=== PATIENT | male | born 1960 | race Caucasian/White ===

== ENCOUNTER → 2016-05-22 | Outpatient (CLI) | payer OTHER ==
[~2016-05-22] MED LIST: CLC100 PO; GARL1TAB13 PO
[2016-05-22 17:40] LABS: ALT/SGPT 27 U/L (12-78); BLOOD UREA NITROGEN 18 mg/dl (7-18); BUN/CREATININE RATIO 15.2 (10-20); CARBON DIOXIDE 24 mmol/L (21-32); CHLORIDE 108 mmol/L (98-107); GLUCOSE 93 mg/dl (70-99); POTASSIUM 4.3 mmol/L (3.5-5.1); SODIUM 140 mmol/L (136-145)
[2016-05-22 17:43] LABS: ALB/GLOB RATIO 1.2 (0.9-2); ALKALINE PHOSPHATASE 90 U/L (45-117); AST/SGOT 19 U/L (15-37)
== END | disposition home or self-care (01) ==
LOC: C.LABPVFM 16:10
PROVIDERS: ATTEND Urology
DX: C64.9 Malignant neoplasm of unspecified kidney, except renal pelvis (principal)

== ENCOUNTER → 2016-05-27 | Outpatient (CLI) | payer OTHER ==
[~2016-05-27] MED LIST changes: +OPTIRAY 320 IV PRN
--- NOTE | 2016-05-27 17:06 | DIAGNOSTIC IMAGING REPORT ---
CT ABD/PELVIS COMBO CLINICAL HISTORY: Clear cell renal carcinoma COMPARISON STUDY: 06/12/2015 TECHNIQUE: Unenhanced images were obtained through the abdomen and pelvis. The patient was then scanned in a dynamic helical fashion during intravenous administration of 90 cc of Optiray 320. Portal phase and 5 minute imaging was performed. CT DOSE: 2709.95 mGycm FINDINGS: Lower chest: The heart is normal in size and configuration, without pericardial effusion. The lung bases and pleural spaces are clear. Liver: There is scattered hepatic hypodensities which approach water attenuation and likely represent cysts. Gallbladder: Unremarkable. Spleen: Normal in size and attenuation. Pancreas: Unremarkable. Adrenal glands: Unremarkable. Kidneys: The right kidney is surgically absent. There are tiny left renal calculi. There is mild fullness left renal collecting system. There is a 9 mm upper pole left renal cortical cyst. There are left renal parapelvic cysts. Bowel: There are no transition zones indicate bowel obstruction. The appendix appears normal. There is no evidence of acute diverticulitis. Peritoneum: There is no intraperitoneal free air or abdominal ascites. Vasculature: The abdominal aorta is normal in course and caliber. Adenopathy: None. Pelvic viscera: There is minor prostamegaly. Skeletal structures: No destructive osseous lesions are seen. IMPRESSION: 1. Interval right nephrectomy 2. No evidence of metastatic disease 3. Left-sided nephrolithiasis 4. 9 mm left renal cyst 5. Scattered hypodense hepatic lesions likely representing cysts 6. No evidence of pathologic adenopathy Electronically signed by: Dixon Aguilar M.D. 05/27/2016 5:05 PM Dictated Date/Time: 05/27/2016 4:55 PM
== END | disposition home or self-care (01) ==
LOC: C.CTS 16:28
PROVIDERS: ATTEND Urology
DX: C64.9 Malignant neoplasm of unspecified kidney, except renal pelvis (principal); Z90.5 Acquired absence of kidney; N20.0 Calculus of kidney; N28.1 Cyst of kidney, acquired; K76.9 Liver disease, unspecified

== ENCOUNTER → 2016-07-03 | Outpatient (CLI) | payer OTHER ==
[~2016-07-03] MED LIST changes: -OPTIRAY 320 IV PRN
[2016-07-03 11:51] LABS: BASO % 0.5 %; BASO ABS # 0.04 K/uL (0-0.2); COMPLETE YES; EOS % 2.1 %; HEMATOCRIT 45.2 % (42-52); IG% 0.4 %; LYMPH % 24.8 %; LYMPH ABS # 1.98 K/uL (1.2-3.4); MEAN CORPUSCULAR HEMOGLOBIN 30.1 pg (25-34); MEAN CORPUSCULAR HGB CONC 33.8 g/dl (32-36); NEUT % 66.2 %; PLATELET COUNT 309 K/uL (130-400); RED BLOOD COUNT 5.08 M/uL (4.7-6.1); WHITE BLOOD COUNT 7.99 K/uL (4.8-10.8)
== END | disposition home or self-care (01) ==
LOC: C.LAB1850 10:29
PROVIDERS: ATTEND Dermatology
DX: R21 Rash and other nonspecific skin eruption (principal); L29.9 Pruritus, unspecified

== ENCOUNTER → 2017-04-01 | Outpatient (CLI) | payer OTHER ==
[2017-04-01 17:32] LABS: ALBUMIN 4.2 gm/dl (3.4-5.0); ALT/SGPT 34 U/L (12-78); BLOOD UREA NITROGEN 19 mg/dl (7-18); CARBON DIOXIDE 24 mmol/L (21-32); CREATININE 1.18 mg/dl (0.60-1.40); GLUCOSE 90 mg/dl (70-99); SODIUM 135 mmol/L (136-145)
[2017-04-01 17:35] LABS: ALKALINE PHOSPHATASE 81 U/L (45-117); AST/SGOT 19 U/L (15-37); TOTAL PROTEIN 8.1 gm/dl (6.4-8.2)
== END | disposition home or self-care (01) ==
LOC: C.LABPVFM 16:13
PROVIDERS: ATTEND Urology
DX: C64.9 Malignant neoplasm of unspecified kidney, except renal pelvis (principal)

== ENCOUNTER → 2017-04-08 | Outpatient (CLI) | payer OTHER ==
[~2017-04-08] MED LIST changes: +OPTIRAY 320 IV PRN
--- NOTE | 2017-04-08 17:02 | DIAGNOSTIC IMAGING REPORT ---
ABD/PELVIS COMBO HISTORY: 56 years-old Male RENAL CELL CA prior right-sided nephrectomy in a patient with history of remote renal cell carcinoma. Follow-up study. COMPARISON: CT abdomen and pelvis 05/27/2016 TECHNIQUE: Multiple axial CT images of the abdomen and pelvis were obtained both with and without the use of 75 mL Optiray 320 IV contrast utilizing renal mass protocol. A dose lowering technique was used consistent with the principals of CARLYLE. FINDINGS: Mild dependent subsegmental bibasilar atelectasis. No suspicious pulmonary nodules or masses identified in the imaged lung bases. There is no pneumatosis or pneumoperitoneum identified. The imaged inferior cardiac chambers demonstrate coronary arterial disease and are otherwise unremarkable. There are several unchanged circumscribed low attenuating lesions again noted throughout the liver, probably within the left hepatic lobe, largest of which measures up to 1.4 cm suggesting hepatic cysts. The largest lesion within the right hepatic lobe measures 8 mm. There is no intrahepatic biliary ductal dilation. The gallbladder, spleen, pancreas and adrenal glands are unremarkable. Punctate nonobstructing renal calculi noted throughout the left kidney with largest calculi measuring up to 3 mm within the inferior pole. Mild nonspecific left perinephric stranding. No left-sided ureteral calculi or obstructive uropathy. Unchanged 9 mm cyst of the superior pole left kidney. Renal sinus cysts are seen on the left, largest of which measures 2.3 x 1.7 cm within the interpolar region. No suspicious left renal mass lesions identified. No focal filling defects identified within the left renal collecting system or left ureter. Only the proximal ureter as well opacified. Prior right-sided fracture may. No suspicious mass lesions identified within the expected region of the right kidney or retroperitoneum. Urinary bladder is unremarkable. Prostate is mildly enlarged with central coarse calcifications. Aorta is normal in course and caliber with mild atherosclerosis. No pathologic adenopathy identified. No bowel structure or focal bowel wall thickening identified. The appendix appears normal. Mild nonspecific subcutaneous stranding of the right anterior abdominal wall image 300 of series 5 is unchanged suggesting area of scarring. Soft tissues are otherwise unremarkable. The bones appear intact without suspicious lytic or blastic lesions identified. IMPRESSION: 1. No acute intra-abdominal or intrapelvic abnormality identified. No evidence of metastatic disease or pathologic adenopathy. 2. Prior right-sided nephrectomy. 3. Multiple nonobstructing left-sided renal calculi with subcentimeter cyst of the superior pole and multiple renal sinus cysts. 4. Unchanged appearance of scattered low attenuating lesions throughout the liver, likely reflecting hepatic cysts. The above report was generated using voice recognition software. It may contain grammatical, syntax or spelling errors. Electronically signed by: Ruddy Vu M.D. 04/08/2017 5:00 PM Dictated Date/Time: 04/08/2017 4:51 PM
== END | disposition home or self-care (01) ==
LOC: C.CTS 16:03
PROVIDERS: ATTEND Urology
DX: C64.9 Malignant neoplasm of unspecified kidney, except renal pelvis (principal); Z90.5 Acquired absence of kidney; N20.0 Calculus of kidney

== ENCOUNTER 2022-05-31 05:42 | Inpatient (IN) ==
[2022-05-31] MEDS ORDERED: SODIUM CHLORIDE 0.9% 1000ML 500 ML IV ONE (06:45)
[2022-05-31] MEDS ORDERED: ONDANSETRON INJ 2 MG/ML 2 ML VIAL IV STA (06:45)
[2022-05-31] MEDS ORDERED: fentaNYL citrate PF 100 MCG/2 ML VIAL IV STA ×3 (06:45→08:17)
[2022-05-31 06:46] LABS: Hematocrit (blood only) 45.6 % (42.0-52.0); Hemoglobin 15.6 g/dl (14.0-18.0); Mean Corpuscular Hemoglobin 30.8 pg (25.0-34.0); Mean Corpuscular Hgb Conc 34.2 g/dL (32.0-36.0); Mean Corpuscular Volume 89.9 fL (80.0-100.0); Mean Platelet Volume 9.1 fL (9.4-12.4); Platelet Count 338 K/uL (130-400); RDW Standard Deviation 42.6 fL (36.4-46.3); Red Blood Count 5.07 M/uL (4.70-6.10); White Blood Count 17.03 K/ul (4.8-10.8)
--- NOTE | 2022-05-31 06:56 | Emergency Department Note ---
Impression & Plan Kidney stone on left side, Acute UTI, CHAD (acute kidney injury) ED Provider Note Provider: Mark Mckinney MD DATE OF SERVICE: 05/31/2022 CHIEF COMPLAINT: Abdominal pain, nausea and vomiting HISTORY OF PRESENT ILLNESS: Patient is a 61-year-old gentleman history of clear- cell renal carcinoma status post right nephrectomy following recently with a right hydrocele by urology presenting here today developing some left sided abdominal pain yesterday with abdominal distention and nausea and vomiting worsening yesterday through the night. 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 Did try some Dulcolax by mouth last night with little effect and only a very small bowel movement trace last night. Nonbloody. Denies trauma. Reports he has been feeling a bit warm but denies true fever. Pain is moved to the left abdomen towards the center of the abdomen. Still having some swelling and tenderness of the right testicle but again following closely with urology for this and states he has follow-up this coming week with them. Denies a history of bowel obstruction. Did have a history of a right nephrectomy some years ago. PAST MEDICAL HISTORY: As noted above MEDICATIONS: Reviewed home medication list SOCIAL HISTORY: Non-smoker PHYSICAL EXAM: GENERAL: alert and oriented laying on stretcher appears mildly uncomfortable Head: normocephalic and atraumatic EYES: No injection, discharge or icterus. NECK: Trachea midline. ENT: Mucous membranes pink and moist. LUNGS: Airway patent. No retractions. Breath sounds clear with good air entry bilaterally. HEART: Regular rate and rhythm. No chest wall tenderness ABDOMEN: Abdomen is distended and firm diffusely tender throughout particular in the mid to left abdomen without appreciable mass. : Right testicle is swollen in comparison to the left without discharge noted with a healing central scrotal wound with still a trace area of granulation about 3 cm x 2 cm in the middle of this without surrounding erythema. Mild tenderness. SKIN: Acyanotic, warm, dry EXTREMITIES: Without swelling, tenderness or deformity NEUROLOGICAL: No focal deficits. No aphasia. No facial droop or slurred speech. Ambulatory. EK bpm normal sinus rhythm. No PVC or PAC. No acute ST segment elevation or depression with QTc 443. CONTINUOUS CARDIAC MONITORING: was ordered and showed a heart rate of 70s-80s bpm in normal sinus rhythm Patient's laboratory studies and imaging reviewed. Differential includes Appendicitis, testicular torsion, infections, diverticulitis, UTI, obstruction, mesenteric ischemia, aortic pathology, inflammatory bowel disease, renal colic, PUD, pancreatitis, biliary pathology, hernia, volvulus, constipation, as well as other pathologies. IMPRESSION/MEDICAL DECISION MAKING: Patient following with urology for hydrocele but symptoms today seem to be more abdominal in nature. Has a history of kidney stones but states this feels different. Denies trauma. Significant left abdominal tenderness to the midline with distention and again has had nausea and vomiting with limited bowel movement last night no gas. Concern for obstruction is high. Patient diffusely tender and given some fentanyl as well as Zofran for nausea control. Given his reported decreased intake yesterday and given some IV fluids. Patient afebrile here and not tachycardic. Patient with history of hydrocele but denies significant change in this ongoing chronic issue and lower suspicion for acute testicular pathology. On blood work, White blood cell count is elevated 17,000. No anemia. Lactate within normal limits. Procalcitonin 0.17 not severely elevated. Sent for CT scan to evaluate for intra-abdominal pathology. EKG and troponin completed abundance of caution without significant acute ischemic changes noted and within normal troponin lower suspicion for ACS given his ongoing symptoms. Chemistries returned without lipase elevation with slight ALT elevation as well as bilirubin total elevation. Creatinine off of baseline at almost 1.6 today from baseline around 1.1. No significant potassium or sodium abnormality. Sent for Noncon scan of the abdomen pelvis given the acute renal dysfunction with a history of a right-sided nephrectomy. Urinalysis returns with blood as well as concerning findings for possible infection although epithelial cells are present. CT scan of the abdomen pelvis per radiology shows evidence of a 6 x 4 mm left-sided kidney stone with hydronephrosis. Hydrocele is noted there as well but I do not believe this is the acute issue with his complaint today. Given leukocytosis, dirty urine, and findings of a kidney stone covered with a dose of IV cefepime for bacterial coverage. Given the findings of a kidney stone possibly infected although not septic at this point with the change in renal function and solitary kidney, discussed with urology. Kept n.p.o. with the plan for likely stenting. They recommended medical admission given his CHAD and possible infection. Discussed with the hospitalist team. Patient still having a fair amount of pain although nausea is improved. States the pain medicines make him drowsy but not relieving his pain. DIAGNOSIS: left kidney stone, CHAD, acute UTI DISPOSITION: Hospitalist will evaluate as well as the urology team. Patient was agreeable with this plan. 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 Beliefs That Will Affect Care: None Current Living Situation: Alone Feels Safe at Home: Yes Assistive Devices: None Allergies Allergies Allergy/AdvReac Type Severity Reaction Status Date / Time Penicillins Allergy Mild CHILD Verified 05/22/22 16:02 HAD A RASH morphine AdvReac Mild N/V Verified 05/22/22 16:02 Home Meds Home Medications Medication Instructions Recorded Confirmed garlic 1,000 mg capsule 1,000 mg PO QAM 03/21/22 05/22/22 Results & Data (ED) Vital Signs Vital Signs - 24 hr 05/31/22 05:44 05/31/22 06:20 05/31/22 07:00 Temperature 36.3 C L Temperature Source Temporal Artery Scan Pulse Rate 82 88 Pulse Rate [Apical] Pulse Rate from SpO2 Sensor 86 Pulse Rhythm [Apical] Pulse Strength [Apical] Respiratory Rate 18 24 Respiratory Effort / Characteristics Non-Labored Spontaneous Respiratory Depth Normal Respiratory Pattern Blood Pressure 168/96 H Blood Pressure [Left Arm] Blood Pressure [Right Arm] Blood Pressure Mean 120 Blood Pressure Mean [Left Arm] Blood Pressure Mean [Right Arm] Blood Pressure Position Sitting Blood Pressure Position [Left Arm] Blood Pressure Position [Right Arm] Pulse Oximetry 95 97 94 Oxygen Delivery Method Room Air Room Air Oxygen Flow Rate Sepsis Recent Fever Within 48 Hours No Sepsis New/Unexplained Change in Mental Status No Sepsis Action Taken by Nursing No Action Required 05/31/22 07:17 05/31/22 07:13 05/31/22 07:40 Temperature Temperature Source Pulse Rate 88 77 Pulse Rate [Apical] 88 Pulse Rate from SpO2 Sensor 89 78 Pulse Rhythm [Apical] Regular Pulse Strength [Apical] Respiratory Rate 18 35 H 25 H Respiratory Effort / Characteristics Non-Labored Respiratory Depth Normal Respiratory Pattern Blood Pressure 161/93 H Blood Pressure [Left Arm] Blood Pressure [Right Arm] 161/93 H Blood Pressure Mean 115 Blood Pressure Mean [Left Arm] Blood Pressure Mean [Right Arm] 115 Blood Pressure Position Blood Pressure Position [Left Arm] Blood Pressure Position [Right Arm] Pulse Oximetry 95 95 96 Oxygen Delivery Method Room Air Oxygen Flow Rate Sepsis Recent Fever Within 48 Hours Sepsis New/Unexplained Change in Mental Status Sepsis Action Taken by Nursing 05/31/22 08:00 05/31/22 08:30 05/31/22 08:38 Temperature Temperature Source Pulse Rate 82 78 85 Pulse Rate [Apical] Pulse Rate from SpO2 Sensor 83 79 Pulse Rhythm [Apical] Pulse Strength [Apical] Respiratory Rate 33 H 37 H Respiratory Effort / Characteristics Respiratory Depth Respiratory Pattern Blood Pressure 152/83 H 150/81 H Blood Pressure [Left Arm] Blood Pressure [Right Arm] Blood Pressure Mean 106 104 Blood Pressure Mean [Left Arm] Blood Pressure Mean [Right Arm] Blood Pressure Position Blood Pressure Position [Left Arm] Blood Pressure Position [Right Arm] Pulse Oximetry 90 92 Oxygen Delivery Method Oxygen Flow Rate Sepsis Recent Fever Within 48 Hours Sepsis New/Unexplained Change in Mental Status Sepsis Action Taken by Nursing 05/31/22 09:01 05/31/22 09:01 05/31/22 09:11 Temperature Temperature Source Pulse Rate 94 H 94 H Pulse Rate [Apical] Pulse Rate from SpO2 Sensor 93 H Pulse Rhythm [Apical] Pulse Strength [Apical] Respiratory Rate 15 15 Respiratory Effort / Characteristics Respiratory Depth Respiratory Pattern Blood Pressure 169/100 H 169/100 H Blood Pressure [Left Arm] Blood Pressure [Right Arm] Blood Pressure Mean 123 Blood Pressure Mean [Left Arm] Blood Pressure Mean [Right Arm] Blood Pressure Position Blood Pressure Position [Left Arm] Blood Pressure Position [Right Arm] Pulse Oximetry 99 99 Oxygen Delivery Method Room Air Oxygen Flow Rate Sepsis Recent Fever Within 48 Hours Sepsis New/Unexplained Change in Mental Status Sepsis Action Taken by Nursing 05/31/22 09:22 05/31/22 10:26 05/31/22 10:35 Temperature 37 C 38.0 C H Temperature Source Oral Temporal Artery Scan Pulse Rate Pulse Rate [Apical] 83 89 90 Pulse Rate from SpO2 Sensor Pulse Rhythm [Apical] Regular Regular Regular Pulse Strength [Apical] Normal Normal Normal Respiratory Rate 22 18 32 H Respiratory Effort / Characteristics Non-Labored Spontaneous Non-Labored Spontaneous Non-Labored Spontaneous Respiratory Depth Normal Normal Normal Respiratory Pattern Regular Regular Regular Blood Pressure Blood Pressure [Left Arm] 94/58 L 109/65 Blood Pressure [Right Arm] 150/79 H Blood Pressure Mean Blood Pressure Mean [Left Arm] 70 79 Blood Pressure Mean [Right Arm] 102 Blood Pressure Position Blood Pressure Position [Left Arm] Lying Lying Blood Pressure Position [Right Arm] Lying Pulse Oximetry 93 96 99 Oxygen Delivery Method Room Air Oxymask Oxymask Oxygen Flow Rate 6 6 Sepsis Recent Fever Within 48 Hours Sepsis New/Unexplained Change in Mental Status Sepsis Action Taken by Nursing Laboratory Data 05/31/22 06:22 05/31/22 06:22 Lab Results 05/31/22 05/31/22 05/31/22 Range/Units 06:22 06:22 06:22 WBC 17.03 H (4.8-10.8) K/ul RBC 5.07 (4.70-6.10) M/uL Hgb 15.6 (14.0-18.0) g/dl Hct 45.6 (42.0-52.0) % MCV 89.9 (80.0-100.0) fL MCH 30.8 (25.0-34.0) pg MCHC 34.2 (32.0-36.0) g/dL RDW Std Deviation 42.6 (36.4-46.3) fL RDW Coeff of Milagros 13.0 (11.5-14.5) % Plt Count 338 (130-400) K/uL MPV 9.1 L (9.4-12.4) fL Immature Gran % (Auto) 0.5 % Neut % (Auto) 90.2 % Lymph % (Auto) 5.2 % Pennington % (Auto) 3.6 % Eos % (Auto) 0.1 % Baso % (Auto) 0.4 % Neut # (Auto) 15.39 H (1.40-6.50) K/uL Lymph # (Auto) 0.88 L (1.2-3.4) K/uL Pennington # (Auto) 0.61 H (0.11-0.59) K/uL Eos # (Auto) 0.01 (0-0.50) K/uL Baso # (Auto) 0.06 (0-0.2) K/uL Immature Gran # (Auto) 0.08 (0.01-0.20) K/uL Toxic Vacuolation 1+ Sodium 138 (136-145) mmol/L Potassium 4.0 (3.5-5.1) mmol/L Chloride 103 (98-107) mmol/L Carbon Dioxide 23 (21-32) mmol/L Anion Gap 12 H (3-11) BUN 23 (6-23) mg/dl Creatinine 1.59 H (0.6-1.4) mg/dl Est Cr Clr Drug Dosing 58.0 ml/min Est GFR ( Amer) 52.8 ml/min Est GFR (Non-Af Amer) 45.5 ml/min BUN/Creatinine Ratio 14.5 (10-20) Glucose 167 H (70-99(Fasting)) mg/dl Lactate 1.4 (0.4-2.0) mmol/L Calcium 9.5 (8.6-10.3) mg/dl Magnesium 2.2 (1.7-2.4) mg/dl Total Bilirubin 1.7 H (0.2-1.0) mg/dl Direct Bilirubin 0.3 H (0-0.2) mg/dl AST 29 (13-39) U/L ALT 60 H (7-52) U/L Alkaline Phosphatase 63 (34-104) U/L Troponin I High Sens 9.1 (0-20) pg/ml Total Protein 8.1 (6.0-8.3) gm/dl Albumin 4.6 (3.4-5.0) gm/dl Lipase 9 L (11-82) U/L Procalcitonin (0-0.5) ng/ml Urine Color Urine Appearance (Clear) Urine pH (4.5-7.5) Ur Specific Dickens (1.000-1.030) Urine Protein (Negative) Urine Glucose (UA) (Negative) Urine Ketones (Negative) Urine Blood (Negative) Urine Nitrite (Negative) Urine Bilirubin (Negative) Urine Urobilinogen (Negative) Ur Leukocyte Esterase (Negative) Urine WBC (Auto) (0-5) /hpf Urine RBC (Auto) (0-4) /hpf U Hyaline Cast (Auto) (0-5) /lpf U Epithel Cells (Auto) (0-5) /lpf Urine Bacteria (Auto) (Negative) SARS-CoV-2, RNA, NAAT (NEGATIVE) 05/31/22 05/31/22 05/31/22 Range/Units 06:22 06:23 Unknown WBC (4.8-10.8) K/ul RBC (4.70-6.10) M/uL Hgb (14.0-18.0) g/dl Hct (42.0-52.0) % MCV (80.0-100.0) fL MCH (25.0-34.0) pg MCHC (32.0-36.0) g/dL RDW Std Deviation (36.4-46.3) fL RDW Coeff of Milagros (11.5-14.5) % Plt Count (130-400) K/uL MPV (9.4-12.4) fL Immature Gran % (Auto) % Neut % (Auto) % Lymph % (Auto) % Pennington % (Auto) % Eos % (Auto) % Baso % (Auto) % Neut # (Auto) (1.40-6.50) K/uL Lymph # (Auto) (1.2-3.4) K/uL Pennington # (Auto) (0.11-0.59) K/uL Eos # (Auto) (0-0.50) K/uL Baso # (Auto) (0-0.2) K/uL Immature Gran # (Auto) (0.01-0.20) K/uL Toxic Vacuolation Sodium (136-145) mmol/L Potassium (3.5-5.1) mmol/L Chloride (98-107) mmol/L Carbon Dioxide (21-32) mmol/L Anion Gap (3-11) BUN (6-23) mg/dl Creatinine (0.6-1.4) mg/dl Est Cr Clr Drug Dosing ml/min Est GFR ( Amer) ml/min Est GFR (Non-Af Amer) ml/min BUN/Creatinine Ratio (10-20) Glucose (70-99(Fasting)) mg/dl Lactate (0.4-2.0) mmol/L Calcium (8.6-10.3) mg/dl Magnesium (1.7-2.4) mg/dl Total Bilirubin (0.2-1.0) mg/dl Direct Bilirubin (0-0.2) mg/dl AST (13-39) U/L ALT (7-52) U/L Alkaline Phosphatase (34-104) U/L Troponin I High Sens (0-20) pg/ml Total Protein (6.0-8.3) gm/dl Albumin (3.4-5.0) gm/dl Lipase (11-82) U/L Procalcitonin 0.17 (0-0.5) ng/ml Urine Color Yellow Urine Appearance Turbid A (Clear) Urine pH 5.5 (4.5-7.5) Ur Specific Dickens 1.012 (1.000-1.030) Urine Protein 1+ H (Negative) Urine Glucose (UA) Negative (Negative) Urine Ketones Negative (Negative) Urine Blood 3+ H (Negative) Urine Nitrite Negative (Negative) Urine Bilirubin Negative (Negative) Urine Urobilinogen Negative (Negative) Ur Leukocyte Esterase 3+ H (Negative) Urine WBC (Auto) >30 H (0-5) /hpf Urine RBC (Auto) 10-30 H (0-4) /hpf U Hyaline Cast (Auto) 1-5 (0-5) /lpf U Epithel Cells (Auto) >30 H (0-5) /lpf Urine Bacteria (Auto) 4+ H (Negative) SARS-CoV-2, RNA, NAAT NEGATIVE (NEGATIVE) Administered Medications Diatrizoate Meglumine (Diatrizoate Meglumine 30% 100ml Vial) 24 ml INSTIL ONCE ONE Stop: 05/31/22 10:39 Last Admin: 05/31/22 10:00 Dose: 24 ml Documented By: [id number] Discontinued Medications Fentanyl Citrate (Fentanyl Citrate Pf 100 Mcg/2 Ml Vial) 50 mcg IV NOW STA Stop: 05/31/22 06:46 Last Admin: 05/31/22 06:53 Dose: 50 mcg Documented By: MJK Fentanyl Citrate (Fentanyl Citrate Pf 100 Mcg/2 Ml Vial) 100 mcg IV NOW STA Stop: 05/31/22 07:41 Last Admin: 05/31/22 07:46 Dose: 100 mcg Documented By: JACKSON Fentanyl Citrate (Fentanyl Citrate Pf 100 Mcg/2 Ml Vial) 50 mcg IV NOW STA Stop: 05/31/22 08:18 Last Admin: 05/31/22 08:26 Dose: 50 mcg Documented By: JACKSON Sodium Chloride (Nss 1000ml) 500 mls @ 999 mls/hr IV .Q31M ONE Stop: 05/31/22 07:15 Last Infusion: 05/31/22 07:26 Dose: 0 mls/hr Documented By: Admin: 05/31/22 06:53 Dose: 999 mls/hr Documented By: ALEX Cefepime HCl (Maxipime) 2,000 mg in 20 mls @ 5 mls/min IV NOW STA; Protocol Stop: 05/31/22 08:13 Last Admin: 05/31/22 08:27 Dose: 5 mls/min Documented By: JACKSON Acetaminophen (Ofirmev) 1,000 mg in 100 mls @ 400 mls/hr IV ONE ONE Stop: 05/31/22 09:09 Last Admin: 05/31/22 09:05 Dose: 400 mls/hr Documented By: JACKSON Ondansetron HCl (Ondansetron Inj 2 Mg/Ml 2 Ml Vial) 4 mg IV NOW STA Stop: 05/31/22 06:46 Last Admin: 05/31/22 06:54 Dose: 4 mg Documented By: ALEX Imaging Data Radiologist's Impression: Chest X-Ray 05/31/22 05:49 XR chest 1V portable HISTORY: Sepsis COMPARISON: Chest 03/20/2022. FINDINGS: There are low lung volumes with mild elevation the right hemidiaphragm. This remains unchanged. The cardiac silhouette is borderline enlarged. No new focal lung consolidations to suggest a pneumonia. No evidence for pulmonary edema. IMPRESSION: No significant change compared to the prior study. No acute process. ACT 112: Negative or not required by law. Electronically signed by: Leonardo Vivas M.D. 05/31/2022 7:29 AM Abdomen/Pelvis CT 05/31/22 07:24 CT OF THE ABDOMEN AND PELVIS WITHOUT CONTRAST CLINICAL HISTORY: Abdominal pain, nausea and vomiting, ?obstruction COMPARISON STUDY: CT of the abdomen and pelvis March 20, 2022. TECHNIQUE: Axial images of the abdomen and pelvis were obtained without IV contrast. Images were reviewed in the axial, sagittal, and coronal planes. Automated exposure control was utilized for the study. A dose lowering technique was utilized adhering to the principles of ALARA. FINDINGS: Lung bases are unremarkable. No pneumatosis, free air or portal venous gas is present. A 6 mm x 4 mm distal left ureteral calculus results in mild to moderate left hydronephrosis with perinephric and periureteral stranding. There is a punctate left renal calculus. The right kidney is surgically absent. There is no abnormality within the right nephrectomy bed. There is hepatic steatosis. Hypodense hepatic lesions are unchanged and favor cysts. Spleen, adrenal glands and pancreas are unremarkable. There is no evidence for a bowel obstruction. The re is no lymphadenopathy. No suspicious lesions are identified within visualized skeletal structures. Note is made of a large complex suspected right hydrocele that measures approximately 11 x 8.9 x 8.2 cm. This contains internal septations. The right testis is suboptimally assessed by CT. Right scrotal skin thickening is noted. IMPRESSION: 1. 6 mm x 4 mm distal left ureteral calculus which results in mild to moderate left hydronephrosis. 2. Punctate left renal calculus. 3. No abnormality within the right nephrectomy bed. 4. Large complex right hydrocele which measures approximately 11 x 8.9 x 8.2 cm. This contains internal septations. Associated right scrotal skin thickening. ACT 112: Negative or not required by law. Electronically signed by: Ghassan Multani M.D. 05/31/2022 8:07 AM Discharge Plan Visit Data Chief Complaint: Constipation Stated Complaint: CONSTIPATION ED Provider: Mark Mckinney Discharge Problem: Kidney stone on left side, Acute UTI, CHAD (acute kidney injury) Patient Disposition: Being Evaluated by Hospitalist Discharge Instructions Interventions: ED Discharge Assessment Last Done: 05/31/22 09:11
[2022-05-31 07:09] LABS: Troponin I High Sensitivity 9.1 pg/ml (0-20)
[2022-05-31 07:12] LABS: Basophils # (auto) 0.06 K/uL (0-0.2); Basophils % (auto) 0.4 %; Eosinophils # (auto) 0.01 K/uL (0-0.50); Eosinophils % (auto) 0.1 %; Immature Granulocytes # (auto) 0.08 K/uL (0.01-0.20); Immature Granulocytes % (auto) 0.5 %; Lymphocytes # (auto) 0.88 K/uL (1.2-3.4); Lymphocytes % (auto) 5.2 %; Monocytes # (auto) 0.61 K/uL (0.11-0.59); Monocytes % (auto) 3.6 %; Neutrophils # (auto) 15.39 K/uL (1.40-6.50); Neutrophils % (auto) 90.2 %; Toxic Vacuolation 1+
[2022-05-31 07:23] LABS: Albumin Level 4.6 gm/dl (3.4-5.0); BUN Creatinine Ratio 14.5 (10-20); Bilirubin Direct 0.3 mg/dl (0-0.2); Bilirubin,Total 1.7 mg/dl (0.2-1.0); Calcium 9.5 mg/dl (8.6-10.3); Est GFR (African American) 52.8 ml/min; Est GFR (Non-African American) 45.5 ml/min; Magnesium 2.2 mg/dl (1.7-2.4); Total Protein 8.1 gm/dl (6.0-8.3)
[2022-05-31 07:28] LABS: Appearance Urine Turbid (Clear); Bacteria Urine Automated 4+ (Negative); Bilirubin Urine Negative (Negative); Blood Urine 3+ (Negative); Color Urine Yellow; Epithelial Cell Urine Auto >30 /lpf (0-5); Glucose Urine UA Negative (Negative); Ketones Urine Negative (Negative); Leukocyte Esterase Urine 3+ (Negative); Nitrite Urine Negative (Negative); Protein Urine 1+ (Negative); Specific Gravity Urine 1.012 (1.000-1.030); Urobilinogen Urine Negative (Negative); WBC Urine Automated >30 /hpf (0-5); pH Urine 5.5 (4.5-7.5)
--- NOTE | 2022-05-31 07:30 | XRay Report ---
XR chest 1V portable HISTORY: Sepsis COMPARISON: Chest 03/20/2022. FINDINGS: There are low lung volumes with mild elevation the right hemidiaphragm. This remains unchan ged. The cardiac silhouette is borderline enlarged. No new focal lung consolidations to suggest a pne umonia. No evidence for pulmonary edema. IMPRESSION: No significant change compared to the prior study. No acute process. ACT 112: Negative or not required by law. Electronically signed by: Leonardo Vivas M.D. 05/31/2022 7:29 AM
--- NOTE | 2022-05-31 08:09 | CT Scan Report ---
CT OF THE ABDOMEN AND PELVIS WITHOUT CONTRAST CLINICAL HISTORY: Abdominal pain, nausea and vomiting, ?obstruction COMPARISON STUDY: CT of the abdomen and pelvis March 20, 2022. TECHNIQUE: Axial images of the abdomen and pelvis were obtained without IV contrast. Images were revi ewed in the axial, sagittal, and coronal planes. Automated exposure control was utilized for the juan pablo dy. A dose lowering technique was utilized adhering to the principles of ALARA. FINDINGS: Lung bases are unremarkable. No pneumatosis, free air or portal venous gas is present. A 6 mm x 4 mm distal left ureteral calculus results in mild to moderate left hydronephrosis with perineph hannah and periureteral stranding. There is a punctate left renal calculus. The right kidney is surgical ly absent. There is no abnormality within the right nephrectomy bed. There is hepatic steatosis. Hypo dense hepatic lesions are unchanged and favor cysts. Spleen, adrenal glands and pancreas are unremark able. There is no evidence for a bowel obstruction. There is no lymphadenopathy. No suspicious lesion s are identified within visualized skeletal structures. Note is made of a large complex suspected rig ht hydrocele that measures approximately 11 x 8.9 x 8.2 cm. This contains internal septations. The ri ght testis is suboptimally assessed by CT. Right scrotal skin thickening is noted. IMPRESSION: 1. 6 mm x 4 mm distal left ureteral calculus which results in mild to moderate left hydronephrosis. 2. Punctate left renal calculus. 3. No abnormality within the right nephrectomy bed. 4. Large complex right hydrocele which measures approximately 11 x 8.9 x 8.2 cm. This contains human resource intern al septations. Associated right scrotal skin thickening. ACT 112: Negative or not required by law. Electronically signed by: Ghassan Multani M.D. 05/31/2022 8:07 AM
[2022-05-31] MEDS ORDERED: CEFEPIME 2,000 MG/20 ML VIAL IV STA (08:10)
--- NOTE | 2022-05-31 08:34 | Electrocardiogram Report ---
Test Reason : Blood Pressure : / mmHG Vent. Rate : 077 BPM Atrial Rate : 077 BPM P-R Int : 156 ms QRS Dur : 094 ms QT Int : 392 ms P-R-T Axes : 051 -21 007 degrees QTc Int : 443 ms Normal sinus rhythm Normal ECG When compared with ECG of 20-MAR-2022 15:41, No significant change was found Confirmed by Kieran Joseph ([id number]) on 05/31/2022 8:34:19 AM Referred By: Confirmed By:Kieran Joseph
--- NOTE | 2022-05-31 08:44 | Anesthesiology Consultation ---
Date of Service May 31, 2022 Assessment & Plan (1) Encounter for pre-operative examination: Chart Review Chart Review: Acceptable Risk for Surgery and Patient NOT seen in Pre Admission Testing Consults Requested none History Surgery Operation Date: 05/31/22 10:05 Proposed Procedures p Cystoscopy, Left Retrograde, Left Stent Placement - Andrew Pompa DO Height/Weight Height: 5 ft 9 in Weight: 109.6 kg Allergies Allergy/AdvReac Type Severity Reaction Status Date / Time Penicillins Allergy Mild CHILD Verified 05/22/22 16:02 HAD A RASH morphine AdvReac Mild N/V Verified 05/22/22 16:02 Medications Home Medications Medication Instructions Recorded Confirmed Last Taken garlic 1,000 mg capsule 1,000 mg PO QAM 03/21/22 05/22/22 03/21/22 Past Medical History Medical History Arthritis History of kidney stones Hx of renal cell cancer Obesity Right hydrocele Past Family History Family History Other No family history of adverse response to anesthesia Past Surgical History Surgical History H/O metal removed from eye History of back surgery "LASER">LOWER DISC History of colonoscopy History of lithotripsy History of nephrectomy, right Social History Smoking Status: Never smoker tobacco type: smokeless tobacco Hx Alcohol Use: Yes alcohol intake frequency: holidays/special occasions only substance use type: does not use Physical Exam Vital Signs Last Vital Signs Temp 97.3 F L 05/31/22 05:44 Pulse 85 05/31/22 08:38 Resp 37 H 05/31/22 08:30 BP 150/81 H 05/31/22 08:30 Pulse Ox 92 05/31/22 08:30 O2 Del Method Room Air 05/31/22 07:17 Testing Laboratory Results 05/31/22 06:22 05/31/22 06:22 Urine Color Yellow 05/31/22 06:23 Urine Appearance Turbid (Clear) A 05/31/22 06:23 Urine pH 5.5 (4.5-7.5) 05/31/22 06:23 Ur Specific [place] 1.012 (1.000-1.030) 05/31/22 06:23 Urine Protein 1+ (Negative) H 05/31/22 06:23 Urine Glucose (UA) Negative (Negative) 05/31/22 06:23 Urine Ketones Negative (Negative) 05/31/22 06:23 Urine Nitrite Negative (Negative) 05/31/22 06:23 Ur Leukocyte Esterase 3+ (Negative) H 05/31/22 06:23 Urine WBC (Auto) >30 /hpf (0-5) H 05/31/22 06:23 Urine RBC (Auto) 10-30 /hpf (0-4) H 05/31/22 06:23 U Hyaline Cast (Auto) 1-5 /lpf (0-5) 05/31/22 06:23 U Epithel Cells (Auto) >30 /lpf (0-5) H 05/31/22 06:23 Urine Bacteria (Auto) 4+ (Negative) H 05/31/22 06:23 Electrocardiogram Date: 05/31/22 Findings: + NSR @
[2022-05-31] MEDS ORDERED: ACETAMINOPHEN 1,000 MG/100 ML VIAL IV ONE (08:55)
--- NOTE | 2022-05-31 08:56 | Urology Consultation ---
Date of Consultation May 31, 2022 Assessment & Plan (1) Ureteral calculus, left: (2) Solitary kidney: (3) Hydronephrosis: (4) Acute UTI: (5) CHAD (acute kidney injury): (6) Flank pain: Plan 61-year-old male with a solitary kidney admitted with suspected UTI, CHAD, severe left flank pain secondary to an obstructing left ureteral stone. CT abdomen pelvis independently reviewed and notable for an obstructing distal left ureteral stone causing mild to moderate hydronephrosis. He is afebrile, but hypertensive. Still with significant left sided pain despite IV pain medication. Labs show leukocytosis of 17, hemoglobin 15.6, creatinine up to 1.59 (baseline 1.1). UA suspicious for infection, urine and blood cultures pending. Received IV cefepime in the ED. Given his history of solitary kidney, suspected UTI, and CHAD in the setting of an obstructing left ureteral stone, will proceed to OR today for cystoscopy, left retrograde pyelogram, left ureteral stent placement. Patient agreeable to plan, all questions were answered. Risks and benefits to be reviewed with patient by Dr. Pompa. OR notified. COVID test negative. Keep NPO. Continue supportive care and antibiotics, can tailor as culture data becomes available. Urology will follow. Attending note: Independently assessed, examined, interviewed, and evaluated. Patient is actively developing sepsis with severe rigors and chills. Patient is mildly hypothermic. He has significant tachycardia as well as elevated blood pressure. Patient's white count is significantly elevated to 17.03. Creatinine has jumped up to 1.59. Patient had a COVID examination which was negative. Patient is acutely ill with obstructing stone on the left side. Patient has solitary kidney and due to this would be a major concern for possible development of significant obstructive issues from obstructing stone. Patient has previously had stones in the past. Is a longtime patient of Dr. Olson and has had multiple procedures for this for a scrotal hydrocele, and for his nephrectomy in 2016. Patient's complicated medical and surgical history is reviewed and summarized above. All labs and imagings were reviewed interpreted by myself Patient is going to be admitted for close and critical management. Patient is already receiving broad-spectrum antibiotics with cefepime given. Is undergoing volume resuscitation. Patient does not have any significant altered mental status overall has had increasing ill feelings and worsening pain going in waves. Pain has become extremely severe over the last couple hours. Risks and benefits discussed at length for procedure. These include bleeding, infection, injury to surrounding tissues or organs, and risks associated with anesthesia. Patient states understanding and agrees to proceed. Will sign consent and proceed with urgent intervention/emergent intervention for developing sepsis with solitary kidney and obstructing stone. Considerable concern about loss of life or limb due to the obstructive issues with considerable concern for development of sepsis and bacteremia. 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 He reported subjective fevers, chills, nausea and vomiting at home. On arrival he was afebrile and hemodynamically stable. Labs show a leukocytosis of 17.03, hemoglobin 15.6, and creatinine up to 1.59 (baseline 1.1). Urinalysis with 3+ blood, negative nitrite, 3+ LE,> 30 WBC, 1030 RBC,>30 epi, 4+ bacteria. CT abdomen pelvis obtained and notable for a 6 x 4 mm distal left ureteral stone resulting in mild to moderate left hydronephrosis. Punctate left renal stone also noted. No abnormality within the right nephrectomy bed. Also noted was a large complex right hydrocele containing internal septations with associated scrotal wall skin thickening. CT abdomen pelvis - 1. 6 mm x 4 mm distal left ureteral calculus which results in mild to moderate l eft hydronephrosis. 2. Punctate left renal calculus. 3. No abnormality within the right nephrectomy bed. 4. Large complex right hydrocele which measures approximately 11 x 8.9 x 8.2 cm. This contains internal septations. Associated right scrotal skin thickening Patient examined at bedside in the emergency room. Awake, resting in bed in on arrival. Appears uncomfortable. Still with significant left-sided pain. Has not had anything to eat since yesterday morning. He did have a few sips of water overnight. States he is voiding, but small amounts. States he had a right hydrocelectomy at the end of February. Developed a seroma which has been drained in the office. Has a follow-up with Dr. Whitney this coming Monday 06/05. Allergies Allergy/AdvReac Type Severity Reaction Status Date / Time Penicillins Allergy Mild CHILD Verified 05/22/22 16:02 HAD A RASH morphine AdvReac Mild N/V Verified 05/22/22 16:02 Home Medications Medication Instructions Recorded Confirmed Type garlic 1,000 mg capsule 1,000 mg PO QAM 03/21/22 05/22/22 History Patient History Medical History Arthritis History of kidney stones Hx of renal cell cancer Obesity Right hydrocele Surgical History H/O metal removed from eye History of back surgery "LASER">LOWER DISC History of colonoscopy History of lithotripsy History of nephrectomy, right Family History Other No family history of adverse response to anesthesia Social History Smoking Status: Never smoker Second Hand Exposure: No; Hx Alcohol Use: Yes Preferred Language: Nepali Aligning Inspector Required: No Beliefs That Will Affect Care: None Current Living Situation: Alone Feels Safe at Home: Yes Assistive Devices: None Review of Systems Review of Systems: All systems reviewed & are unremarkable except as noted in HPI & below Physical Exam Constitutional: + uncomfortable Eyes: PERRL, conjunctivae normal, anicteric sclerae ENMT: external ear and nose normal, oropharynx normal Neck: normal visual inspection Respiratory: no respiratory distress Gastrointestinal (Abdomen): Inspection/Auscultation: abdomen normal to inspection Musculoskeletal: Head/Neck/Chest: normocephalic Skin: no rashes, warm and dry Neurologic: moves all extremities and awake Psychiatric: Orientation: alert and oriented x 3 Genitourinary: Left flank tenderness with palpation Results & Data Vital Signs (Past 12 Hours) Vital Signs Temp Pulse Pulse Resp BP BP Pulse Ox 05/31/22 08:38 85 05/31/22 08:30 78 37 H 150/81 H 92 05/31/22 08:00 82 33 H 152/83 H 90 05/31/22 07:40 77 25 H 96 05/31/22 07:13 88 35 H 161/93 H 95 05/31/22 07:17 88 18 161/93 H 95 05/31/22 07:00 88 24 94 04/07/23 06:20 97 05/31/22 05:44 36.3 C L 82 18 168/96 H 95 O2 Del Method 05/31/22 08:38 05/31/22 08:30 05/31/22 08:00 05/31/22 07:40 05/31/22 07:13 05/31/22 07:17 Room Air 05/31/22 07:00 05/31/22 06:20 Room Air 05/31/22 05:44 Room Air PG Care Time/CCT Total # of Minutes Spent Total Time Spent with Patient: Total time spent is greater than 50% in coordination of care (as documented) at patient's floor/unit and/or counseling patient: Coding Level of Care Code 90740 IN/OBS CONSULT LVL 5,80M Diagnoses Ureteral calculus, left N20.1 Solitary kidney Hydronephrosis N13.30 Acute UTI N39.0 CHAD (acute kidney injury) N17.9 Flank pain R10.9
--- NOTE | 2022-05-31 09:20 | History & Physical Report ---
Date of Service May 31, 2022 Assessment & Plan (1) Acute UTI: Plan: Patient is a 61 yo male with left hydronephrosis and a left kidney stone Concern over a UTI. Patient on antibiotics, patient will be getting a ureteral stent today. WIll continue pain medicine, and place NPO. After procedre will re eval pain and slowly advance diet. dvt: heparin (2) Hydronephrosis: (3) Kidney stone on left side: History of Present Illness Chief Complaint: abdominal pain. 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 Patient reports for the past 3 days, he initially noted a decrease in his appetite, however this past 24 hours, he has noted subjective fevers, chills, nausea and vomiting at home. In the ED, patient was found to be normotensive, however, he had a leukocytosis of 17.03, hemoglobin 15.6, and creatinine up to 1.59 (baseline 1.1). CT scan confirmed a 6 x 4 mm distal left ureteral stone resulting in mild to mo derate left hydronephrosis. Punctate left renal stone also noted. No abnormality within the right nephrectomy bed. Also noted was a large complex right hydrocele containing internal septations with associated scrotal wall skin thickening. Patient reports his pain is severe, and the narcotics were not helping. Allergies Allergy/AdvReac Type Severity Reaction Status Date / Time Penicillins Allergy Mild CHILD Verified 05/22/22 16:02 HAD A RASH morphine AdvReac Mild N/V Verified 05/22/22 16:02 Home Medications Medication Instructions Recorded Confirmed Type garlic 1,000 mg capsule 1,000 mg PO QAM 03/21/22 05/22/22 History Past Med/Surg History Medical History Arthritis History of kidney stones Hx of renal cell cancer Obesity Right hydrocele Surgical History H/O metal removed from eye History of back surgery "LASER">LOWER DISC History of colonoscopy History of lithotripsy History of nephrectomy, right Family History Other No family history of adverse response to anesthesia Social History Smoking Status: Never smoker Second Hand Exposure: No; Hx Alcohol Use: No Hx Substance Use: No Preferred Language: [place] Citizen 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 Beliefs That Will Affect Care: None Current Living Situation: Alone Other Information That Helps Us Care for You: No Feels Safe at Home: Yes Assistive Devices: None Review of Systems Constitutional: + fever, + body aches and + weakness Ear, Nose, Mouth, Throat: no ear pain Respiratory: no cough Cardiovascular: no chest pain Gastrointestinal: no abdominal pain Genitourinary: no dysuria Musculoskeletal: no back pain Integumentary: no acne Neurologic: no gait abnormality Psychiatric: no behavioral changes Endocrine: no fatigue Hematologic / Lymphatic: no easy bleeding Allergy / Immunological: no GI upset with certain foods Physical Exam Constitutional: WD/WN, vitals as above Eyes: PERRL, conjunctivae normal, anicteric sclerae ENMT: external ear and nose normal, oropharynx normal Neck: trachea midline, no thyromegaly Respiratory: normal respiratory effort, lungs clear to auscultation Cardiovascular: Rate/Rhythm: regular rhythm and + tachycardic Gastrointestinal (Abdomen): Inspection/Auscultation: abdomen normal to inspection Percussion/Palpation: + abdomen tender (no rebound tenderness) and abdomen soft Musculoskeletal: no cyanosis or clubbing, extremities motor strength 5/5 Skin: no rashes, warm and dry Neurologic: PERRL, EOMI, accommodation nl, no face palsy, no dysarthria Psychiatric: A+Ox3, euthymic affect Lymphatic: no cervical or axillary lymphadenopathy Results & Data Results & Data Vital Signs (Past 12 Hours) Vital Signs Temp Pulse Pulse Resp BP BP Pulse Ox 05/31/22 09:11 94 H 15 169/100 H 99 05/31/22 09:01 169/100 H 05/31/22 09:01 94 H 15 99 05/31/22 08:38 85 05/31/22 08:30 78 37 H 150/81 H 92 05/31/22 08:00 82 33 H 152/83 H 90 05/31/22 07:40 77 25 H 96 05/31/22 07:13 88 35 H 161/93 H 95 05/31/22 07:17 88 18 161/93 H 95 05/31/22 07:00 88 24 94 05/31/22 06:20 97 05/31/22 05:44 36.3 C L 82 18 168/96 H 95 O2 Del Method 05/31/22 09:11 Room Air 05/31/22 09:01 05/31/22 09:01 05/31/22 08:38 05/31/22 08:30 05/31/22 08:00 05/31/22 07:40 05/31/22 07:13 05/31/22 07:17 Room Air 05/31/22 07:00 05/31/22 06:20 Room Air 05/31/22 05:44 Room Air Code Status & VTE Plan VTE Prophylaxis Plan VTE Prophylaxis will be ordered: Yes PG Care Time/CCT Total # of Minutes Spent Total Time Spent with Patient: Total time spent is greater than 50% in coordination of care (as documented) at patient's floor/unit and/or counseling patient: Coding Level of Care Code 10430 INT INP/OBS CARE MIN Diagnoses Acute UTI N39.0 Hydronephrosis N13.30 Kidney stone on left side N20.0
[2022-05-31] MEDS ORDERED: fentaNYL citrate PF 100 MCG/2 ML VIAL IV PRN (09:38)
[2022-05-31] MEDS ORDERED: ePHEDrine sulfate 50 MG/ML AMP IV PRN (09:38)
[2022-05-31] MEDS ORDERED: ATROPINE SULFATE 0.1 MG/ML 10ML SYR IV PRN (09:38)
[2022-05-31] MEDS ORDERED: ONDANSETRON INJ 2 MG/ML 2 ML VIAL IV PRN (09:38)
[2022-05-31] MEDS ORDERED: LIDOCAINE 2% MPF LOCAL 5 ML VIAL ONE (09:45)
[2022-05-31] MEDS ORDERED: PROPOFOL IV EMULSION 10 MG/ML 20 ML VIAL IV ONE ×2 (09:45→10:13)
[2022-05-31] MEDS ORDERED: MIDAZOLAM HCL 1 MG/ML 2ML VIAL ONE (09:46)
[2022-05-31] MEDS ORDERED: fentaNYL citrate PF 100 MCG/2 ML VIAL ONE ×2 (09:46→10:06)
--- NOTE | 2022-05-31 10:33 | Operative Report ---
PG Post Operative Report Pre & Post Diagnosis Operation Date: 05/31/22 10:05 Pre-Op Diagnosis: hydronephrosis, Sepsis, Solitary kidney Post-Op Diagnosis: hydronephrosis, Sepsis, Solitary kidney I identified the patient and participated in the time-out.: Yes Procedure Operation Date: 05/31/22 10:05 Actual Procedures p Cystoscopy, Left Retrograde pyelogram, Left Urine Aspiration, Left Stent Placement - Andrew Pompa, Surgeon Andrew Pompa, II, DO [place] None Estimated Blood Loss 1 Findings Consistent with Post-Op Diagnosis Significant obstruction of left solitary kidney with significant hydronephrosis. Stent placed in good position. Specimens Urine Left Kidney Drains 6 Fr Multilength Anesthesia Type MAC Complications none Disposition Disposition: Recovery Room Indications Patient with obstruction. Risks and benefits discussed at length. Description of Procedure Patient was consented and brought back to the operating room. Patient was placed under anesthesia in the supine position and moved to the dorsal lithotomy position. Patient was prepped and draped in the regular sterile fashion. A time out was completed. A 30degree Cystoscope was placed into the bladder and the entire bladder was examined. The UO's were identified. The UO was cannulized with a catheter, urine was aspirated from the left renal pelvis after advancing past the stone, and a retrograde pyelogram was completed. Urine from the left kidney was sent for micro assessment. A wire was then plac ed. With the wire in place, a 6 Fr Double J stent was placed. It was confirmed with fluoroscopy. With the stent in place, the bladder was emptied. The scope was removed. The patient was cleaned, aroused from anesthesia, and transferred to the pacu in stable condition having tolerated the procedure well with no complications. I was present and participated in all aspects of the procedure. The patient will be monitored in the PACU until transferred. Plan to monitor on floor with support care for sepsis with obstructing stone. Will likely plan on stone treatment in next few weeks after completion of treatment for infection. I attest to the content of the Intraoperative Record and any orders documented therein. Any exceptions are noted below.
[2022-05-31] MEDS ORDERED: DIATRIZOATE MEGLUMINE 30% 100ML VIAL INSTIL ONE (10:38)
--- NOTE | 2022-05-31 10:50 | Anesthesiology Progress Note ---
Date of Service May 31, 2022 Anesthesia Post Procedure Vital Signs Vital Signs: Temp Pulse Pulse Resp BP BP BP 05/31/22 10:45 93 H 28 H 114/70 05/31/22 10:35 90 32 H 109/65 05/31/22 10:26 100.4 F H 89 18 94/58 L 05/31/22 09:22 98.6 F 83 22 150/79 H 05/31/22 09:11 94 H 15 169/100 H 05/31/22 09:01 169/100 H 05/31/22 09:01 94 H 15 05/31/22 08:38 85 05/31/22 08:30 78 37 H 150/81 H 05/31/22 08:00 82 33 H 152/83 H 05/31/22 07:40 77 25 H 05/31/22 07:13 88 35 H 161/93 H 05/31/22 07:17 88 18 161/93 H 05/31/22 07:00 88 24 05/31/22 06:20 05/31/22 05:44 97.3 F L 82 18 168/96 H Pulse Ox O2 Del Method O2 Flow Rate 05/31/22 10:45 92 Room Air 05/31/22 10:35 99 Oxymask 6 05/31/22 10:26 96 Oxymask 6 05/31/22 09:22 93 Room Air 05/31/22 09:11 99 Room Air 05/31/22 09:01 05/31/22 09:01 99 05/31/22 08:38 05/31/22 08:30 92 05/31/22 08:00 90 05/31/22 07:40 96 05/31/22 07:13 95 05/31/22 07:17 95 Room Air 05/31/22 07:00 94 05/31/22 06:20 97 Room Air 05/31/22 05:44 95 Room Air Pain Intensity Left Upper Abdomen: Pain Intensity: 9 Left Lower Abdomen: Pain Intensity: 9 Transfer of Care Handoff Completed per policy Notes Mental Status: alert / awake / arousable and participated in evaluation Patient Amnestic to Procedure: Yes Nausea / Vomiting: adequately controlled Pain: adequately controlled Airway Patency, RR, SpO2: stable & adequate BP & HR: stable & adequate Hydration State: stable & adequate Anesthetic Complications: no major complications apparent and Pt Satisfied with anesthetic care
--- NOTE | 2022-05-31 11:49 | Fluoroscopy Report ---
FL retrograde includes kub CLINICAL HISTORY: Left ureteral stent placement. COMPARISON STUDY: Abdomen and pelvis CT 05/31/2022. FLUOROSCOPY TIME: 21 seconds FLUOROSCOPY IMAGES: 4 Ka,r: 7.6 mGy FINDINGS: There is retrograde opacification of the left renal collecting system/ureter followed by pl acement of a left ureteral stent. The ureteral stent appears in good position. IMPRESSION: Fluoroscopic assistance as above. ACT 112: Negative or not required by law. Electronically signed by: Leonardo Vivas M.D. 05/31/2022 11:48 AM
[2022-05-31] MEDS: NSS + 20MEQ KCL 20 MEQ/1,000 ML BAG IV SCH ×2 (12:26→20:58)
[2022-05-31] MEDS: HEPARIN SOD 5,000 UNIT/0.5 ML VIAL SQ SCH ×2 (14:32→21:00)
[2022-05-31] MEDS ORDERED: PHENAZOPYRIDINE HCL 100 MG TAB PO PRN (17:11)
[2022-05-31] MEDS: DOCUSATE SODIUM/SENNA 50/8.6MG TAB PO SCH (17:44)
[2022-05-31] MEDS: POLYETHYLENE (MIRALAX) 17 GM PACK PO SCH (17:44)
[2022-05-31 19:22] LABS: A calco-baum cmplx NotReported Not Detected (NotDetected); Bact fragilis Not Reported Not Detected (NotDetected); C auris Not Reported Not Detected (NotDetected); CTX-M Resistant Gene Not Detected (NotDetected); Calbicans Not Reported Not Detected (NotDetected); Candida glabrata Not Reported Not Detected (NotDetected); Candida krusei Not Reported Not Detected (NotDetected); Cneoformans/gatti Not Reported Not Detected (NotDetected); Cparapsilosis Not Reported Not Detected (NotDetected); Ctropicalis Not Reported Not Detected (NotDetected); E cloacae compx Not Reported Not Detected (NotDetected); Efaecalis Not Reported Not Detected (NotDetected); Efaecium Not Reported Not Detected (NotDetected); Enterobacterales Not Reported DETECTED (NotDetected); Escherichia coli Not Reported Not Detected (NotDetected); H influenzae Not Reported Not Detected (NotDetected); IMP Resistant Gene Not Detected (NotDetected); K aerogenes Not Reported Not Detected (NotDetected); KPC Resistant Gene Not Detected (NotDetected); Koxytoca Not Reported Not Detected (NotDetected); Kpneumoniae grp Not Reported DETECTED (NotDetected); Lmonocyt Not Reported Not Detected (NotDetected); N meningitidis Not Reported Not Detected (NotDetected); NDM Resistant Gene Not Detected (NotDetected); OXA 48 Like Resistant Gene Not Detected (NotDetected); P aeruginosa Not Reported Not Detected (NotDetected); Proteus spp Not Reported Not Detected (NotDetected); Salmonella spp Not Reported Not Detected (NotDetected); Smarcescens Not Reported Not Detected (NotDetected); Staph lugdunensis Not Reported Not Detected (NotDetected); Staph spp. Not Reported Not Detected (NotDetected); Staphaureus Not Reported Not Detected (NotDetected); Staphepi Not Reported Not Detected (NotDetected); Stenmaltophilia Not Reported Not Detected (NotDetected); Strep agal(GrpB) Not Reported Not Detected (NotDetected); Strep pneum Not Reported Not Detected (NotDetected); Strep pyog (GrpA) Not Reported Not Detected (NotDetected); Strep spp Not Reported Not Detected (NotDetected); VIM Resistant Gene Not Detected (NotDetected); mcr-1 Colistin Resistant Gene Not Detected (NotDetected)
[2022-05-31 20:33] LABS: Enterobacterales DETECTED (NotDetected); Klebsiella pneumoniae group DETECTED (NotDetected)
[2022-06-01] MEDS: HEPARIN SOD 5,000 UNIT/0.5 ML VIAL SQ SCH ×3 (05:24→20:02)
[2022-06-01 06:20] LABS: Hematocrit (blood only) 38.6 % (42.0-52.0); Hemoglobin 13.1 g/dl (14.0-18.0); Mean Corpuscular Hemoglobin 30.3 pg (25.0-34.0); Mean Corpuscular Hgb Conc 33.9 g/dL (32.0-36.0); Mean Corpuscular Volume 89.4 fL (80.0-100.0); Mean Platelet Volume 9.6 fL (9.4-12.4); Platelet Count 236 K/uL (130-400); RDW Coefficient of Variation 13.1 % (11.5-14.5); RDW Standard Deviation 43.4 fL (36.4-46.3); Red Blood Count 4.32 M/uL (4.70-6.10); White Blood Count 18.46 K/ul (4.8-10.8)
[2022-06-01 06:29] LABS: BUN Creatinine Ratio 17.7 (10-20); Creatinine Clr Calc Pharmacy 55.9 ml/min; Est GFR (African American) 50.8 ml/min; Est GFR (Non-African American) 43.8 ml/min; Potassium 4.5 mmol/L (3.5-5.1)
[2022-06-01] MEDS: POLYETHYLENE (MIRALAX) 17 GM PACK PO SCH (08:00)
[2022-06-01] MEDS: DOCUSATE SODIUM/SENNA 50/8.6MG TAB PO SCH (08:08)
[2022-06-01] MEDS ORDERED: CEFEPIME 1,000 MG in SYRINGE 0 ML IV SCH (09:00)
[2022-06-01] MEDS ORDERED: NSS + 20MEQ KCL 20 MEQ/1,000 ML BAG IV SCH (10:00)
[2022-06-01] MEDS: SODIUM CHLORIDE 0.9% 1000ML 1,000 ML IV SCH ×2 (10:30→18:14)
[2022-06-01] MEDS: ACETAMINOPHEN 325 MG TAB PO PRN (14:43)
[2022-06-01] MEDS: CEFEPIME 2,000 MG in SYRINGE 0 ML IV SCH (20:02)
--- NOTE | 2022-06-01 21:13 | Hospitalist Progress Note ---
Date of Service June 01, 2022 Assessment & Plan (1) Acute UTI: Plan: Gram negative bacteremia. Sepsis in a 61 yo male with gram negative bacteremia Source is a complicatied UTI. Patient is a 61 yo male with left hydronephrosis and a left kidney stone Continue cefepime, awaiting specificties. SP ureteral stent WIll continue pain medicine, and place NPO. After procedure will re eval pain and slowly advance diet. dvt: heparin (2) Hydronephrosis: Plan: imprpved function after ureteral stent. (3) Kidney stone on left side: Admission and Anticipated Discharge Date Admission Date: May 31, 2022 Subjective Patient reportshaving symptoms of having chills. Review of Systems Review of Systems: All systems reviewed & are unremarkable except as noted in HPI & below Physical Exam Constitutional: WD/WN, vitals as above Eyes: PERRL, conjunctivae normal, anicteric sclerae ENMT: external ear and nose normal, oropharynx normal Neck: trachea midline, no thyromegaly Respiratory: normal respiratory effort, lungs clear to auscultation Cardiovascular: Rate/Rhythm: regular rhythm and + tachycardic Gastrointestinal (Abdomen): Inspection/Auscultation: abdomen normal to inspection Percussion/Palpation: abdomen soft; abdomen nontender Musculoskeletal: no cyanosis or clubbing, extremities motor strength 5/5 Skin: no rashes, warm and dry Neurologic: PERRL, EOMI, accommodation nl, no face palsy, no dysarthria Psychiatric: A+Ox3, euthymic affect Lymphatic: no cervical or axillary lymphadenopathy Results & Data Results & Data Vital Signs (Past 12 Hours) Vital Signs Temp Pulse Resp BP Pulse Ox O2 Del Method 06/01/22 19:58 37.6 C H 84 18 128/76 94 Room Air 06/01/22 14:41 37.6 C H 87 18 148/82 H 95 Room Air PG Care Time/CCT Total # of Minutes Spent Total Time Spent with Patient: Total time spent is greater than 50% in coordination of care (as documented) at patient's floor/unit and/or counseling patient: Coding Level of Care Code 14138 SUB INP/OBS CARE 3/50MIN Diagnoses Acute UTI N39.0 Hydronephrosis N13.30 Kidney stone on left side N20.0
[2022-06-02] MEDS: HEPARIN SOD 5,000 UNIT/0.5 ML VIAL SQ SCH (05:00)
[2022-06-02] MEDS: ACETAMINOPHEN 325 MG TAB PO PRN (07:45)
[2022-06-02] MEDS: DOCUSATE SODIUM/SENNA 50/8.6MG TAB PO SCH (07:45)
[2022-06-02] MEDS: POLYETHYLENE (MIRALAX) 17 GM PACK PO SCH (07:46)
[2022-06-02] MEDS: CEFEPIME 2,000 MG in SYRINGE 0 ML IV SCH (07:46)
[2022-06-02 10:54] LABS: Basophils # (auto) 0.04 K/uL (0-0.2); Basophils % (auto) 0.4 %; Eosinophils # (auto) 0.23 K/uL (0-0.50); Eosinophils % (auto) 2.2 %; Hematocrit (blood only) 38.1 % (42.0-52.0); Immature Granulocytes # (auto) 0.06 K/uL (0.01-0.20); Immature Granulocytes % (auto) 0.6 %; Lymphocytes # (auto) 1.41 K/uL (1.2-3.4); Lymphocytes % (auto) 13.2 %; Mean Corpuscular Hemoglobin 30.2 pg (25.0-34.0); Mean Corpuscular Hgb Conc 34.1 g/dL (32.0-36.0); Mean Corpuscular Volume 88.4 fL (80.0-100.0); Mean Platelet Volume 9.6 fL (9.4-12.4); Monocytes # (auto) 0.82 K/uL (0.11-0.59); Monocytes % (auto) 7.7 %; Neutrophils # (auto) 8.11 K/uL (1.40-6.50); Neutrophils % (auto) 75.9 %; Platelet Count 233 K/uL (130-400); RDW Coefficient of Variation 12.9 % (11.5-14.5); RDW Standard Deviation 42.2 fL (36.4-46.3); Red Blood Count 4.31 M/uL (4.70-6.10); White Blood Count 10.67 K/ul (4.8-10.8)
--- NOTE | 2022-06-02 11:14 | Discharge Summary ---
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 Patient reports for the past 3 days, he initially noted a decrease in his appetite, however this past 24 hours, he has noted subjective fevers, chills, nausea and vomiting at home. In the ED, patient was found to be normotensive, however, he had a leukocytosis of 17.03, hemoglobin 15.6, and creatinine up to 1.59 (baseline 1.1). CT scan confirmed a 6 x 4 mm distal left ureteral stone resulting in mild to moderate left hydronephrosis. Punctate left renal stone also noted. No abnormality within the right nephrectomy bed. Also noted was a large complex right hydrocele containing internal septations with associated scrotal wall skin thickening. Patient reports his pain is severe, and the narcotics were not helping. Principal Diagnosis UTI complicated Discharge Exam Constitutional WD/WN, vitals as above Eyes PERRL, conjunctivae normal, anicteric sclerae ENMT external ear and nose normal, oropharynx normal Neck trachea midline, no thyromegaly Respiratory normal respiratory effort, lungs clear to auscultation Cardiovascular Rate/Rhythm: regular rhythm and + tachycardic Gastrointestinal (Abdomen) Inspection/Auscultation: abdomen normal to inspection Percussion/Palpation: abdomen soft; abdomen nontender Musculoskeletal no cyanosis or clubbing, extremities motor strength 5/5 Skin no rashes, warm and dry Neurologic PERRL, EOMI, accommodation nl, no face palsy, no dysarthria Psychiatric A+Ox3, euthymic affect Lymphatic no cervical or axillary lymphadenopathy Discharge Data Allergies Allergy/AdvReac Type Severity Reaction Status Date / Time Penicillins Allergy Mild CHILD Verified 05/22/22 16:02 HAD A RASH morphine AdvReac Mild N/V Verified 05/22/22 16:02 Consultations 05/31/22 08:16 Consult Urology Routine 05/31/22 08:24 ED Decision to Admit Stat Procedures Performed Operation Date: 05/31/22 10:05 Actual Procedures p Cystoscopy, Left Retrograde pyelogram, Left Urine Aspiration, Left Stent Placement(Left) - Andrew Pompa, Ordered Studies 05/31/22 07:24 CT abd pelvis wo con Stat 04/07/23 10:00 FL retrograde includes kub Routine Hospital Course (1) Acute UTI: Gram negative bacteremia. Sepsis in a 61 yo male with gram negative bacteremia Source is a complicated UTI. Patient is a 61 yo male with left hydronephrosis and a left kidney stone Continue cefepime, awaiting specificties. SP ureteral stent Patient continues to have a ureteral stone that could be infectious Patient has been afebrile and WBC has normalized. Patient will be discharged on a 10 day supply of cefdinir (2 doses via home pack and a 9 day script to the pharmacy) Patient will likely require an extended dose depending on when Urology will remove the stone and stent. Patient is tolerating diet and will be discharged. Patient has a followup with Urology in the next week. Patient should get established with a PCP as he does not have one. dvt: heparin (2) Hydronephrosis: improved function after ureteral stent. (3) Kidney stone on left side: Total Time Total Time Spent Total Time Spent (In Minutes): 32 Discharge Plan Discharge Items Patient Disposition: Home - Self-Care Reason For Visit: KIDNEY STONE/ ABDOMINAL PAIN Discharge Diagnosis: kidney stone/ complicated UTI Activity: Resume your previous activity Non-emergency contact: Primary Care Provider Call non-emergency contact if: you have any medication questions Follow-up/Referrals: Rory Olson MD [Physician] - 06/05/22 4:00 pm PCP,NO [Primary Care Provider] - Diet: Regular Addtl Attending Provider Instructions: Good afternoon Mr. Magaña, You were found to have a Urinary tract infection. You also required a stent placed in your ureter to help open up the blockage. This urinary tract infection was complicated given that you have bacteria in your blood stream. The good news is that once your infection is treated, the blood stream infection should clear up. Given that the stone is still present, you may require prolonged antibiotics. I will prescribe a 10 day supply, but this may likely need to be extended, depending on when the stone is removed. Changing topics, you should establish yourself with a Primary Care Doctor. Given your age, only having one kidney, it will be very helpful to do checkups and screenings to be able to catch any issues when they are small amd easier to fix, instead of waiting until you are extremely sick in which it could be too late to do anything. I recommend you followup up with a PCP within the next 1-2 weeks. Hope you have a happy Easter. Best regards, Ricardo Rodrigues Pending Studies at Discharge: No Stand-Alone Forms: My [facility], Smoking Cessation Medications and DC Order Prescriptions: Continued garlic 1,000 mg Capsule 1,000 mg PO QAM No Action cefpodoxime 200 mg tablet 200 mg PO BID Discharge Orders: Discharge Order (Routine); Ordered 06/02/22 Ordered By: Ricardo Rodrigues Admission Data Admit Date/Time: 05/31/22 09:16 Attending Provider: Ricardo Rodrigues Admit Provider: Ricardo Rodrigues Primary Care Provider: PCP,NO Other Providers: Andrew Pompa ; Ricardo Rodrigues Other Interventions: Discharge Summary Assessment (RN) Last Done: 06/02/22 13:15 Coding Level of Care Code 95730 INP/OBS DISCH >30 MIN Diagnoses Acute UTI N39.0 Hydronephrosis N13.30 Kidney stone on left side N20.0
[2022-06-02] MEDS ORDERED: CEFDINIR 300 MG CAP PO SCH ×2 (11:15→21:00)
[2022-06-02 11:18] LABS: Albumin Level 3.4 gm/dl (3.4-5.0); BUN Creatinine Ratio 19.2 (10-20); Bilirubin Direct 0.1 mg/dl (0-0.2); Bilirubin,Total 0.7 mg/dl (0.2-1.0); C Reactive Protein 18.14 mg/dl (0-0.5); Calcium 8.7 mg/dl (8.6-10.3); Creatinine Clr Calc Pharmacy 76.4 ml/min; Est GFR (African American) 74.1 ml/min; Total Protein 6.6 gm/dl (6.0-8.3)
== END 2022-06-02 14:02 | disposition home or self-care (01) | DRG 854 ==
LOC: ED 05:42 → 3N 09:15 → OR 09:15 → 3N 09:16

== ENCOUNTER 2022-06-21 04:04 | Inpatient (IN) ==
[2022-06-21 05:19] LABS: Basophils # (auto) 0.06 K/uL (0-0.2); Basophils % (auto) 0.5 %; Eosinophils # (auto) 0.26 K/uL (0-0.50); Eosinophils % (auto) 2.3 %; Hematocrit (blood only) 36.9 % (42.0-52.0); Hemoglobin 12.4 g/dl (14.0-18.0); Immature Granulocytes # (auto) 0.07 K/uL (0.01-0.20); Immature Granulocytes % (auto) 0.6 %; Lymphocytes # (auto) 1.59 K/uL (1.2-3.4); Lymphocytes % (auto) 14.4 %; Mean Corpuscular Hemoglobin 29.6 pg (25.0-34.0); Mean Corpuscular Hgb Conc 33.6 g/dL (32.0-36.0); Mean Corpuscular Volume 88.1 fL (80.0-100.0); Monocytes # (auto) 0.96 K/uL (0.11-0.59); Monocytes % (auto) 8.7 %; Neutrophils # (auto) 8.14 K/uL (1.40-6.50); Neutrophils % (auto) 73.5 %; Platelet Count 502 K/uL (130-400); RDW Coefficient of Variation 12.9 % (11.5-14.5); RDW Standard Deviation 41.5 fL (36.4-46.3); Red Blood Count 4.19 M/uL (4.70-6.10); White Blood Count 11.08 K/ul (4.8-10.8)
[2022-06-21 05:37] LABS: Albumin Level 3.6 gm/dl (3.4-5.0); BUN Creatinine Ratio 14.3 (10-20); Bilirubin,Total 0.5 mg/dl (0.2-1.0); Calcium 8.7 mg/dl (8.6-10.3); Creatinine Clr Calc Pharmacy 93.4 ml/min; Est GFR (African American) 94.7 ml/min; Est GFR (Non-African American) 81.7 ml/min; Globulin 3.7 gm/dl (2.5-4.0); Potassium 3.9 mmol/L (3.5-5.1); Total Protein 7.3 gm/dl (6.0-8.3)
[2022-06-21 05:48] LABS: Partial Thromboplastin Ratio 1.1; Partial Thromboplastin Time 31.3 Seconds (21.0-31.0); Prothrombin Time 11.2 Seconds (9.0-12.0)
--- NOTE | 2022-06-21 07:27 | Emergency Department Note ---
History of Present Illness General Chief complaint: Groin Pain Stated complaint: SWOLLEN TESTICLE, BLEEDING Time Seen by Provider: 06/21/22 04:17 History of Present Illness Maximum Pain Intensity: 10 This is a 61-year-old male presenting to the emergency department for evaluation of swelling to his scrotal sac. The patient has been following over the past several months with urology for this and similar symptoms. He initially had a large hydrocele that was surgically removed, and ultimately had orchiectomy. This was performed about [address] Olson of local urology. The patient has had swelling and ER visit since that time. At his last ER visit about 5 days ago patient gave a urine sample that grew both Klebsiella and a coagulase-negative staph. This could have been true infection, but it is difficult to determine as he did have instrumentation for kidney stone prior to this as well. The patient was contacted by ER physician and pharmacist, but refused to come in for IV antibiotics. Cultures indicated that he would likely need IV daptomycin or IV vancomycin for the staph infection. The patient was initially on Bactrim which would have covered his Klebsiella infection, but was then transitioned to Levaquin to possibly cover as a p.o. option. Patient states that for the past 2 days he has had fevers chills. He works as a dairy cattle farm worker, and "if I don't work, I don't get paid". Patient rates his current discomfort a 10/10. He is having serous leaking from his surgical site primarily on the left side scrotum. Home Medications Medication Instructions Recorded Confirmed Type garlic 1,000 mg capsule 1,000 mg PO QAM 03/21/22 06/21/22 History levofloxacin 250 mg tablet 250 mg PO DAILY 06/21/22 06/21/22 History oxybutynin chloride 5 mg tablet 0 mg PO BID PRN bladder spasms 06/21/22 06/21/22 History Allergies Allergy/AdvReac Type Severity Reaction Status Date / Time Penicillins Allergy Mild CHILD Verified 06/11/22 12:21 HAD A RASH morphine AdvReac Mild N/V Verified 06/11/22 12:21 Past Med/Surg History Medical History Arthritis Difficult intravenous access Stuck "multiple times" for IV with previous surgeries History of kidney stones Hx of renal cell cancer Obesity Surgical History H/O metal removed from eye History of back surgery "LASER">LOWER DISC History of colonoscopy History of hydrocelectomy History of lithotripsy History of nephrectomy, right S/P cystoscopy with ureteral stent placement w/urine aspiration, LT RP Family History Other No family history of adverse response to anesthesia Social History Smoking Status: Never smoker Second Hand Exposure: No; Do You Dip or Chew Tobacco: No; Tobacco Cessation Education Requested by Patient: No Hx Alcohol Use: No Hx Substance Use: No Preferred Language: Setswana Communication Ability: Effective Visual Impairment: No Limitations Business Process Modeler Required: No Beliefs That Will Affect Care: None Current Living Situation: Alone Other Information That Helps Us Care for You: No Feels Safe at Home: Yes Safety Concerns: Feels Safe At This Time Assistive Devices: None Review of Systems A total of 10 systems reviewed and were otherwise negative Physical Exam Vital Signs Vital Signs - 24 hr 06/21/22 04:09 06/21/22 04:50 06/21/22 06:06 Temperature 36.5 C 36.8 C Temperature Source Temporal Artery Scan Oral Pulse Rate 81 78 Pulse Rate [Left Finger] 68 Pulse Rhythm [Left Finger] Regular Pulse Strength [Left Finger] Normal Respiratory Rate 20 18 Respiratory Effort / Characteristics Non-Labored Spontaneous Non-Labored Spontaneous Respiratory Depth Normal Normal Respiratory Pattern Regular Blood Pressure 142/80 H Blood Pressure [Right Arm] 121/78 Blood Pressure Mean 100 Blood Pressure Mean [Right Arm] 92 Blood Pressure Position [Right Arm] Lying Pulse Oximetry 98 97 Oxygen Delivery Method Room Air Room Air Sepsis Recent Fever Within 48 Hours No Sepsis New/Unexplained Change in Mental Status N/A Sepsis Action Taken by Nursing No Action Required 06/21/22 07:37 Temperature Temperature Source Pulse Rate Pulse Rate [Left Finger] 66 Pulse Rhythm [Left Finger] Pulse Strength [Left Finger] Respiratory Rate 16 Respiratory Effort / Characteristics Respiratory Depth Respiratory Pattern Blood Pressure Blood Pressure [Right Arm] 140/78 Blood Pressure Mean Blood Pressure Mean [Right Arm] 98 Blood Pressure Position [Right Arm] Pulse Oximetry 95 Oxygen Delivery Method Room Air Sepsis Recent Fever Within 48 Hours Sepsis New/Unexplained Change in Mental Status Sepsis Action Taken by Nursing VITALS: Vitals are noted on the nurse's note and reviewed by myself. Vital signs stable. GENERAL: Well-developed, well-nourished, white male, who is moderately uncomfortable. HEAD: Normocephalic atraumatic. NECK: Supple without nuchal rigidity. No lymphadenopathy. No thyromegaly. Cervical spine is nontender. HEART: Regular rate and rhythm without murmurs gallops or rubs. LUNGS: Clear to auscultation bilaterally without wheezes, rales or rhonchi. No retractions or accessory muscle use. ABDOMEN: Positive normal bowel sounds x 4. Soft, nontender, without masses or organomegaly. No guarding or rebound tenderness. : Remarkable swelling notable to the scrotal sac. There is a sutured surgical wound to the left side scrotum that is with leakage of serous fluid. There may be some erythema of the left side compared to the right. No obvious abscess or purulence. Course Administered Medications Enoxaparin Sodium (Enoxaparin Inj 40 Mg/0.4 Ml Syr) 40 mg SQ Q24H [facility] Stop: 07/21/22 18:59 Last Admin: 06/21/22 19:31 Dose: Not Given Documented By: STU Daptomycin 525 mg/ Syringe 10.5 mls @ 5.25 mls/min IV Q24H [facility]; Protocol Stop: 06/23/22 06:44 Last Admin: 06/21/22 07:39 Dose: 5.25 mls/min Documented By: WILDA Ceftriaxone Sodium 2,000 mg/ (Dextrose) 70 mls @ 100 mls/hr IV Q24H [facility]; Protocol Stop: 07/01/22 10:59 Last Infusion: 06/21/22 12:43 Dose: 0 mls/hr Documented By: Admin: 06/21/22 11:09 Dose: 100 mls/hr Documented By: MITCHEL Sodium Chloride (Nss 1000ml) 1,000 mls @ 125 mls/hr IV .Q8H [facility] Stop: 07/21/22 10:27 Last Admin: 06/21/22 19:28 Dose: 125 mls/hr Documented By: Infusion: 06/21/22 18:48 Dose: 125 mls/hr Documented By: Admin: 06/21/22 10:48 Dose: 125 mls/hr Documented By: MITCHEL Oxycodone HCl (Oxycodone Hcl Ir 5 Mg Tab (Immediate Release)) 10 mg PO Q6H PRN PRN Reason: Moderate Pain 4-6/10 Stop: 07/05/22 10:27 Last Admin: 06/21/22 19:28 Dose: 10 mg Documented By: Admin: 06/21/22 11:37 Dose: 10 mg Documented By: MITCHEL Medical Decision Making Differential Diagnosis Differential diagnosis includes, but is not limited to: Sepsis, infection, postoperative complication, myocardial infarction, dysrhythmia, pericarditis, pneumothorax, aortic aneurysm/dissection, DVT/PE, anxiety, GERD, PUD, electrolyte imbalance, thyroid disorder, pneumonia, bronchitis, pancreatitis, and others Laboratory Data 06/21/22 04:45 06/21/22 04:45 Lab Results 06/21/22 06/21/22 06/21/22 Range/Units 04:45 04:45 04:45 WBC 11.08 H (4.8-10.8) K/ul RBC 4.19 L (4.70-6.10) M/uL Hgb 12.4 L (14.0-18.0) g/dl Hct 36.9 L (42.0-52.0) % MCV 88.1 (80.0-100.0) fL MCH 29.6 (25.0-34.0) pg MCHC 33.6 (32.0-36.0) g/dL RDW Std Deviation 41.5 (36.4-46.3) fL RDW Coeff of Milagros 12.9 (11.5-14.5) % Plt Count 502 H (130-400) K/uL MPV 9.0 L (9.4-12.4) fL Immature Gran % (Auto) 0.6 % Neut % (Auto) 73.5 % Lymph % (Auto) 14.4 % [place] % (Auto) 8.7 % Eos % (Auto) 2.3 % Baso % (Auto) 0.5 % Neut # (Auto) 8.14 H (1.40-6.50) K/uL Lymph # (Auto) 1.59 (1.2-3.4) K/uL [place] # (Auto) 0.96 H (0.11-0.59) K/uL Eos # (Auto) 0.26 (0-0.50) K/uL Baso # (Auto) 0.06 (0-0.2) K/uL Immature Gran # (Auto) 0.07 (0.01-0.20) K/uL ESR (0-20) mm/hr PT 11.2 (9.0-12.0) Seconds INR 1.0 (0.9-1.1) APTT 31.3 H (21.0-31.0) Seconds PTT Ratio 1.1 Sodium 134 L (136-145) mmol/L Potassium 3.9 (3.5-5.1) mmol/L Chloride 102 (98-107) mmol/L Carbon Dioxide 22 (21-32) mmol/L Anion Gap 10 (3-11) BUN 14 (6-23) mg/dl Creatinine 0.98 (0.6-1.4) mg/dl Est Cr Clr Drug Dosing 93.4 ml/min Est GFR ( Amer) 94.7 ml/min Est GFR (Non-Af Amer) 81.7 ml/min BUN/Creatinine Ratio 14.3 (10-20) Glucose 164 H (70-99(Fasting)) mg/dl Lactate (0.4-2.0) mmol/L Calcium 8.7 (8.6-10.3) mg/dl Magnesium 2.0 (1.7-2.4) mg/dl Total Bilirubin 0.5 (0.2-1.0) mg/dl AST 13 (13-39) U/L ALT 15 (7-52) U/L Alkaline Phosphatase 60 (34-104) U/L Troponin I High Sens (0-20) pg/ml Total Protein 7.3 (6.0-8.3) gm/dl Albumin 3.6 (3.4-5.0) gm/dl Globulin 3.7 (2.5-4.0) gm/dl Albumin/Globulin Ratio 1.0 (0.9-2) Urine Color Urine Appearance (Clear) Urine pH (4.5-7.5) Ur Specific [place] (1.000-1.030) Urine Protein (Negative) Urine Glucose (UA) (Negative) Urine Ketones (Negative) Urine Blood (Negative) Urine Nitrite (Negative) Urine Bilirubin (Negative) Urine Urobilinogen (Negative) Ur Leukocyte Esterase (Negative) Lyme Disease IgG Ab (Negative) Lyme Disease IgM Ab (Negative) SARS-CoV-2, RNA, NAAT (NEGATIVE) 06/21/22 06/21/22 06/21/22 Range/Units 04:45 04:45 04:45 WBC (4.8-10.8) K/ul RBC (4.70-6.10) M/uL Hgb (14.0-18.0) g/dl Hct (42.0-52.0) % MCV (80.0-100.0) fL MCH (25.0-34.0) pg MCHC (32.0-36.0) g/dL RDW Std Deviation (36.4-46.3) fL RDW Coeff of Milagros (11.5-14.5) % Plt Count (130-400) K/uL MPV (9.4-12.4) fL Immature Gran % (Auto) % Neut % (Auto) % Lymph % (Auto) % [place] % (Auto) % Eos % (Auto) % Baso % (Auto) % Neut # (Auto) (1.40-6.50) K/uL Lymph # (Auto) (1.2-3.4) K/uL [place] # (Auto) (0.11-0.59) K/uL Eos # (Auto) (0-0.50) K/uL Baso # (Auto) (0-0.2) K/uL Immature Gran # (Auto) (0.01-0.20) K/uL ESR 110 H (0-20) mm/hr PT (9.0-12.0) Seconds INR (0.9-1.1) APTT (21.0-31.0) Seconds PTT Ratio Sodium (136-145) mmol/L Potassium (3.5-5.1) mmol/L Chloride (98-107) mmol/L Carbon Dioxide (21-32) mmol/L Anion Gap (3-11) BUN (6-23) mg/dl Creatinine (0.6-1.4) mg/dl Est Cr Clr Drug Dosing ml/min Est GFR ( Amer) ml/min Est GFR (Non-Af Amer) ml/min BUN/Creatinine Ratio (10-20) Glucose (70-99(Fasting)) mg/dl Lactate 2.0 (0.4-2.0) mmol/L Calcium (8.6-10.3) mg/dl Magnesium (1.7-2.4) mg/dl Total Bilirubin (0.2-1.0) mg/dl AST (13-39) U/L ALT (7-52) U/L Alkaline Phosphatase (34-104) U/L Troponin I High Sens (0-20) pg/ml Total Protein (6.0-8.3) gm/dl Albumin (3.4-5.0) gm/dl Globulin (2.5-4.0) gm/dl Albumin/Globulin Ratio (0.9-2) Urine Color Urine Appearance (Clear) Urine pH (4.5-7.5) Ur Specific [place] (1.000-1.030) Urine Protein (Negative) Urine Glucose (UA) (Negative) Urine Ketones (Negative) Urine Blood (Negative) Urine Nitrite (Negative) Urine Bilirubin (Negative) Urine Urobilinogen (Negative) Ur Leukocyte Esterase (Negative) Lyme Disease IgG Ab (Negative) Lyme Disease IgM Ab (Negative) SARS-CoV-2, RNA, NAAT NEGATIVE (NEGATIVE) 06/21/22 06/21/22 06/21/22 Range/Units 04:45 06:41 07:45 WBC (4.8-10.8) K/ul RBC (4.70-6.10) M/uL Hgb (14.0-18.0) g/dl Hct (42.0-52.0) % MCV (80.0-100.0) fL MCH (25.0-34.0) pg MCHC (32.0-36.0) g/dL RDW Std Deviation (36.4-46.3) fL RDW Coeff of Milagros (11.5-14.5) % Plt Count (130-400) K/uL MPV (9.4-12.4) fL Immature Gran % (Auto) % Neut % (Auto) % Lymph % (Auto) % [place] % (Auto) % Eos % (Auto) % Baso % (Auto) % Neut # (Auto) (1.40-6.50) K/uL Lymph # (Auto) (1.2-3.4) K/uL [place] # (Auto) (0.11-0.59) K/uL Eos # (Auto) (0-0.50) K/uL Baso # (Auto) (0-0.2) K/uL Immature Gran # (Auto) (0.01-0.20) K/uL ESR (0-20) mm/hr PT (9.0-12.0) Seconds INR (0.9-1.1) APTT (21.0-31.0) Seconds PTT Ratio Sodium (136-145) mmol/L Potassium (3.5-5.1) mmol/L Chloride (98-107) mmol/L Carbon Dioxide (21-32) mmol/L Anion Gap (3-11) BUN (6-23) mg/dl Creatinine (0.6-1.4) mg/dl Est Cr Clr Drug Dosing ml/min Est GFR ( Amer) ml/min Est GFR (Non-Af Amer) ml/min BUN/Creatinine Ratio (10-20) Glucose (70-99(Fasting)) mg/dl Lactate (0.4-2.0) mmol/L Calcium (8.6-10.3) mg/dl Magnesium (1.7-2.4) mg/dl Total Bilirubin (0.2-1.0) mg/dl AST (13-39) U/L ALT (7-52) U/L Alkaline Phosphatase (34-104) U/L Troponin I High Sens 7.8 (0-20) pg/ml Total Protein (6.0-8.3) gm/dl Albumin (3.4-5.0) gm/dl Globulin (2.5-4.0) gm/dl Albumin/Globulin Ratio (0.9-2) Urine Color Yellow Urine Appearance Clear (Clear) Urine pH 6.5 (4.5-7.5) Ur Specific [place] 1.016 (1.000-1.030) Urine Protein Negative (Negative) Urine Glucose (UA) Negative (Negative) Urine Ketones Negative (Negative) Urine Blood Negative (Negative) Urine Nitrite Negative (Negative) Urine Bilirubin Negative (Negative) Urine Urobilinogen Negative (Negative) Ur Leukocyte Esterase Negative (Negative) Lyme Disease IgG Ab Negative (Negative) Lyme Disease IgM Ab Negative (Negative) SARS-CoV-2, RNA, NAAT (NEGATIVE) MDM Narrative Physical exam and history were performed. Nursing notes, EMR, and Medication List were personally reviewed. No social concerns were identified as barriers to patients care. Patient appears to have a large amount of swelling to the scrotal sac. He did have atypical findings on a urine culture performed a few days ago and refused to come back to the ER for IV treatment. He is describing feverish symptoms. IV access was established and labs were obtained. Cultures and lactic were gathered. Urology was contacted. Based on his previous cultures he was given IV daptomycin here in the ER. Patient's blood work is as above and was reviewed. He does not have a significantly elevated white blood cell count, gross anemia, bandemia, or significant electrolyte imbalance. Lactic is negative. Urine is pending at the time of this dictation. While under care in the ER he was on the shelter monitor. He primarily was at normal sinus rhythm at about 70 bpm, however there was a concerning around that occurred with a roughly 10 to 15-second of ventricular arrhythmia. Monitor strip was printed and placed on the chart. The patient was immediately attended to during this time, and was laying in bed comfortably watching television. I am unsure if this is a true arrhythmia, as he did not have any symptoms during the episode. He did not have any recurrent episode. Case was discussed with the on-call urology team, who will be able to evaluate the patient either here in the ER or on the floor if he is admitted. Because of the patient's symptoms I did reach out to the on-call hospitalist team who agreed to evaluate the patient here in the ER. Please see their dictation for further patient course, plan, and disposition. The chart was completed utilizing [employer] Speech Voice Recognition Software. Grammatical errors, random word insertions, pronoun errors, and incomplete sentences are an occasional consequence of this system due to software limitations, ambient noise, and hardware issues. Any formal questions or concerns about the content, text, or information contained within the body of this dictation should be directly addressed to the provider for clarification. . Impression & Plan Scrotal pain, Dysrhythmia, UTI (urinary tract infection) Discharge Plan Visit Data Chief Complaint: Groin Pain Stated Complaint: SWOLLEN TESTICLE, BLEEDING ED Provider: Ami Lomeli ED Midlevel Provider: Eric Uribe Discharge Problem: Scrotal pain, Dysrhythmia, UTI (urinary tract infection) Patient Disposition: Admitted As Inpatient Discharge Instructions Interventions: ED Discharge Assessment Last Done: 06/21/22 09:46
[2022-06-21] MEDS: DAPTOmycin 525 MG in SYRINGE 0 ML IV SCH (07:39)
--- NOTE | 2022-06-21 08:11 | History & Physical Report ---
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 Patient be on med telemetry electrolytes are replete at this time will evaluate for further issues I personally spoke with urology on-call. Consult History of Present Illness Primary Care Provider: NO PCP 61-year-old male who has a history of a right radical nephrectomy for renal cell carcinoma 2015, presented in February to our urology group with a large right hydrocele and underwent a right hydrocelectomy on March 26, [address] Rory Olson postoperatively he had issues with slow swelling and postoperative seroma which was slow to improve and patient had 300 cc of fluid removed in the office on May 06 and again 600 cc drained on May 22 Patient was admitted to the hospital on May 31 with a urinary tract infection concern for sepsis and a left ureteral stone taken to the operating room for cystoscopy retrograde pyelogram urine aspiration and left ureteral stent placement by Dr. Pmopa, discharged on May on cefpodoxime 200 mg twice daily, seen in the office on the planned for a right scrotal exploration and possible orchiectomy and laser lithotripsy. This was accomplished on 11 June 2022. Represented to the emergency department on June 16 testicular ultrasound was obtained which was reviewed with Dr. Bob patient was released in the emergency room on antibiotics of Bactrim twice daily urine culture from that day grew Klebsiella which was covered by the Bactrim but also grew coag negative staph. In the emergency department his scrotum remains fairly swollen and tender emergency staff contact urology overnight which recommended admission. Incidentally while the patient was in the emergency department he had a 15 beat run of an arrhythmia while he was at rest without symptoms. Emergency department given daptomycin to cover his staph urine culture Allergies Allergy/AdvReac Type Severity Reaction Status Date / Time Penicillins Allergy Mild CHILD Verified 06/11/22 12:21 HAD A RASH morphine AdvReac Mild N/V Verified 06/11/22 12:21 Home Medications Medication Instructions Recorded Confirmed Type garlic 1,000 mg capsule 1,000 mg PO QAM 03/21/22 06/21/22 History levofloxacin 250 mg tablet 250 mg PO DAILY 06/21/22 06/21/22 History oxybutynin chloride 5 mg tablet 0 mg PO BID PRN bladder spasms 06/21/22 06/21/22 History Past Med/Surg History Medical History Arthritis Difficult intravenous access Stuck "multiple times" for IV with previous surgeries History of kidney stones Hx of renal cell cancer Obesity Surgical History H/O metal removed from eye History of back surgery "LASER">LOWER DISC History of colonoscopy History of hydrocelectomy History of lithotripsy History of nephrectomy, right S/P cystoscopy with ureteral stent placement w/urine aspiration, LT RP Family History Other No family history of adverse response to anesthesia Social History Smoking Status: Never smoker Second Hand Exposure: No; Do You Dip or Chew Tobacco: No; Tobacco Cessation Education Requested by Patient: No Hx Alcohol Use: No Hx Substance Use: No Preferred Language: Chadian Communication Ability: Effective Visual Impairment: No Limitations Industrial Spraypainter Required: No Beliefs That Will Affect Care: None Current Living Situation: Alone Other Information That Helps Us Care for You: No Feels Safe at Home: Yes Safety Concerns: Feels Safe At This Time Assistive Devices: None Physical Exam Physical Exam: PT is in some pain swollen scrotum, serosanguineous drainage on dressing cardiac is regular lungs are clear Results & Data Results & Data Vital Signs (Past 12 Hours) Vital Signs Temp Pulse Pulse Resp BP BP Pulse Ox 06/21/22 07:37 66 16 140/78 95 06/21/22 06:06 98.2 F 68 18 121/78 97 06/21/22 04:50 78 06/21/22 04:09 97.7 F 81 20 142/80 H 98 O2 Del Method 06/21/22 07:37 Room Air 06/21/22 06:06 Room Air 06/21/22 04:50 06/21/22 04:09 Room Air Code Status & VTE Plan VTE Prophylaxis Plan VTE Prophylaxis will be ordered: Yes PG Care Time/CCT Total # of Minutes Spent Total Time Spent with Patient: Total time spent is greater than 50% in coordination of care (as documented) at patient's floor/unit and/or counseling patient: Coding Level of Care Code 76132 INT INP/OBS CARE 2/55MIN Diagnoses Scrotal infection N49.2
[2022-06-21 08:34] LABS: Lyme Ab IgG w/WB Rflx Negative (Negative); Lyme Ab IgM w/WB Rflx Negative (Negative)
[2022-06-21 08:49] LABS: Appearance Urine Clear (Clear); Bilirubin Urine Negative (Negative); Blood Urine Negative (Negative); Color Urine Yellow; Glucose Urine UA Negative (Negative); Ketones Urine Negative (Negative); Leukocyte Esterase Urine Negative (Negative); Nitrite Urine Negative (Negative); Protein Urine Negative (Negative); Specific Gravity Urine 1.016 (1.000-1.030); Urobilinogen Urine Negative (Negative); pH Urine 6.5 (4.5-7.5)
--- NOTE | 2022-06-21 09:25 | Urology Consultation ---
Date of Consultation June 21, 2022 Assessment & Plan (1) Scrotal pain: 61-year-old male who is status post left ureteroscopy for stone treatment and right scrotal orchiectomy for recurrent hydrocele on 06/11/2022. Patient is afebrile and hemodynamically stable. Labs reviewedcreatinine 0.98, WBC 11.08. UC on 06/16 grew out Klebsiella and Coag negative staph - previously treated with Bactrim and Levofloxacin. Blood cultures obtained today - pending. He has been started on IV daptomycin and ceftriaxone. Plan of care reviewed with Dr. Olson. No acute intervention warranted at this time - ok to resume diet today. Provided reassurance that he will improve as he gets further out from surgery. Swelling in the scrotum can persist for several weeks to months post operatively. Continue supportive care, scrotal support and elevation, alternating ice and/or heat on/off, anti-inflammatories and prn analgesia. Continue antibiotics per hospital medicine service. History of Present Illness Requesting Physician: Dr. De Leon Attending Physician: Dr. 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 He is s/p left ureteroscopy and right scrotal orchiectomy with Dr. Olson on 06/11/2022. His stent was left on a string and was removed the following day in clinic on 06/12/22. He presented to the emergency department on 06/16/22 after developing dysuria and right inguinal pain. Renal ultrasound performed and showed no hydronephrosis. Scrotal ultrasound showed a normal left testicle and expected postoperative swelling in the right hemiscrotum. He was discharged from ED with empiric Bactrim. His urine culture on 06/16/22 grew out Klebsiella and Coag negative staph. He declined returning to ED for IV antibiotics and was additionally given PO Levofloxacin. He returned to the ED today with complaint of scrotal swelling, pain and drainage from incision. On arrival, he was afebrile and hemodynamically stable. Lab work showed creatinine 0.98, WBC 11.08, hemoglobin 12.4. Urinalysis unremarkable. Blood cultures obtained and pending. He was admitted to the hospital medicine service. He was started on IV Daptomycin and Ceftriaxone. Patient seen and examined in the emergency department. He is awake and resting in bed in no apparent distress. He reports his scrotum was the "size of a grapefruit" and had significant drainage from incision site which prompted his return to the emergency department. 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 He is voiding spontaneously, no dysuria or hematuria. He notes tenderness to the right base of his scrotum. He reports that discomfort is more notable with activity and sitting, but he is generally comfortable with laying down. Reports weakness and feeling shaky and sweats at home. Allergies Allergy/AdvReac Type Severity Reaction Status Date / Time Penicillins Allergy Mild CHILD Verified 06/11/22 12:21 HAD A RASH morphine AdvReac Mild N/V Verified 06/11/22 12:21 Home Medications Medication Instructions Recorded Confirmed Type garlic 1,000 mg capsule 1,000 mg PO QAM 03/21/22 06/21/22 History levofloxacin 250 mg tablet 250 mg PO DAILY 06/21/22 06/21/22 History oxybutynin chloride 5 mg tablet 0 mg PO BID PRN bladder spasms 06/21/22 06/21/22 History Patient History Medical History Arthritis Difficult intravenous access Stuck "multiple times" for IV with previous surgeries History of kidney stones Hx of renal cell cancer Obesity Surgical History H/O metal removed from eye History of back surgery "LASER">LOWER DISC History of colonoscopy History of hydrocelectomy History of lithotripsy History of nephrectomy, right S/P cystoscopy with ureteral stent placement w/urine aspiration, LT RP Family History Other No family history of adverse response to anesthesia Social History Smoking Status: Never smoker Second Hand Exposure: No; Do You Dip or Chew Tobacco: No; Tobacco Cessation Education Requested by Patient: No Hx Alcohol Use: No Hx Substance Use: No Preferred Language: Swedish Communication Ability: Effective Visual Impairment: No Limitations Human Resources Talent Manager Required: No Beliefs That Will Affect Care: None Current Living Situation: Alone Other Information That Helps Us Care for You: No Feels Safe at Home: Yes Safety Concerns: Feels Safe At This Time Assistive Devices: None Review of Systems Review of Systems: All systems reviewed & are unremarkable except as noted in HPI & below Physical Exam Constitutional: well developed, well nourished and + obese; no acute distress Eyes: no scleral abnormality Neck: trachea midline Respiratory: normal respiratory effort; no respiratory distress and no labored breathing Cardiovascular: Extremities: no pedal edema Gastrointestinal (Abdomen): Inspection/Auscultation: abdomen normal to inspection; abdomen not distended Musculoskeletal: Head/Neck/Chest: normocephalic and head atraumatic Neurologic: moves all extremities and awake Psychiatric: Orientation: alert and oriented x 3 Genitourinary: Circumcised penis. Scrotum is edematous, greater on right, with mild erythema, tenderness to palpation most notable on right posterior scrotum. Surgical incision appears well approximated, moderate serous drainage from incision. No purulent drainage or fluctuance appreciated. Results & Data Vital Signs (Past 12 Hours) Vital Signs Temp Pulse Pulse Resp BP BP Pulse Ox 06/21/22 07:37 66 16 140/78 95 06/21/22 06:06 36.8 C 68 18 121/78 97 06/21/22 04:50 78 06/21/22 04:09 36.5 C 81 20 142/80 H 98 O2 Del Method 06/21/22 07:37 Room Air 06/21/22 06:06 Room Air 06/21/22 04:50 06/21/22 04:09 Room Air PG Care Time/CCT Total # of Minutes Spent Total Time Spent with Patient: Total time spent is greater than 50% in coordination of care (as documented) at patient's floor/unit and/or counseling patient: Coding Level of Care Code 21996 IN/OBS CONSULT LVL 3,45M Diagnoses Scrotal pain N50.82 Time Spent (min) 45
[2022-06-21] MEDS ORDERED: ACETAMINOPHEN 325 MG TAB PO PRN (10:28)
[2022-06-21] MEDS ORDERED: MoRPHine SULFATE 2 MG/ML CARP IV PRN (10:28)
[2022-06-21] MEDS ORDERED: ONDANSETRON INJ 2 MG/ML 2 ML VIAL IV PRN (10:28)
[2022-06-21] MEDS: SODIUM CHLORIDE 0.9% 1000ML 1,000 ML IV SCH ×2 (10:48→19:28)
[2022-06-21] MEDS: cefTRIAXone SODIUM 2,000 MG in DEXTROSE 5% 50 ML IV SCH (11:09)
[2022-06-21] MEDS: oxyCODONE HCL IR 5 MG TAB (IMMEDIATE RELEASE) PO PRN ×2 (11:37→19:28)
--- NOTE | 2022-06-21 13:55 | Electrocardiogram Report ---
Test Reason : Blood Pressure : / mmHG Vent. Rate : 067 BPM Atrial Rate : 067 BPM P-R Int : 166 ms QRS Dur : 090 ms QT Int : 414 ms P-R-T Axes : 027 -11 006 degrees QTc Int : 437 ms Poor data quality, interpretation may be adversely affected Normal sinus rhythm Normal ECG When compared with ECG of 31-MAY-2022 06:19, No significant change was found Confirmed by Joseph Mclaughlin ([id number]) on 06/21/2022 1:55:00 PM Referred By: REFERRED SELF Confirmed By:Joseph Mclaughlin
[2022-06-21] MEDS: ENOXAPARIN INJ 40 MG/0.4 ML SYR SQ SCH (19:31)
[2022-06-22] MEDS: oxyCODONE HCL IR 5 MG TAB (IMMEDIATE RELEASE) PO PRN (01:38)
[2022-06-22] MEDS: SODIUM CHLORIDE 0.9% 1000ML 1,000 ML IV SCH ×3 (03:25→19:27)
[2022-06-22] MEDS: DAPTOmycin 525 MG in SYRINGE 0 ML IV SCH (06:14)
[2022-06-22 07:41] LABS: Hematocrit (blood only) 37.4 % (42.0-52.0); Hemoglobin 12.3 g/dl (14.0-18.0); Mean Corpuscular Hemoglobin 29.1 pg (25.0-34.0); Mean Corpuscular Hgb Conc 32.9 g/dL (32.0-36.0); Mean Corpuscular Volume 88.4 fL (80.0-100.0); Mean Platelet Volume 8.7 fL (9.4-12.4); Platelet Count 472 K/uL (130-400); RDW Coefficient of Variation 12.7 % (11.5-14.5); RDW Standard Deviation 41.3 fL (36.4-46.3); Red Blood Count 4.23 M/uL (4.70-6.10); White Blood Count 8.48 K/ul (4.8-10.8)
[2022-06-22 07:48] LABS: BUN Creatinine Ratio 13.7 (10-20); C Reactive Protein 9.63 mg/dl (0-0.5); Calcium 8.5 mg/dl (8.6-10.3); Creatinine Clr Calc Pharmacy 95.6 ml/min; Est GFR (African American) 98.3 ml/min; Est GFR (Non-African American) 84.9 ml/min; Magnesium 1.9 mg/dl (1.7-2.4); Potassium 4.1 mmol/L (3.5-5.1)
[2022-06-22] MEDS ORDERED: traMADol HCL 50 MG TABLET PO STA (09:39)
[2022-06-22] MEDS: ACETAMINOPHEN 500 MG TAB PO SCH ×3 (10:02→23:01)
[2022-06-22] MEDS: cefTRIAXone SODIUM 2,000 MG in DEXTROSE 5% 50 ML IV SCH (10:03)
--- NOTE | 2022-06-22 10:54 | Urology Progress Note ---
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: Plan 61-year-old male with a history of right radical nephrectomy for renal cell carcinoma; recent presentation secondary to an obstructing left ureteral calculus; recent surgery for a right hematocele with ultimate return to the operating room to remove the remnant testis which did not recover after surgery I have reviewed his imaging, performed personal physical exam and reviewed all lab work and cultures Overall I am actually quite pleased with his current recovery from his recent surgerydoing much better now than he was previously The incision is healing appropriately and his level of scrotal swelling is within the expected range given his complex recent issues His kidney function has recovered entirely Cultures are thus far negative but empiric coverage with antibiotics is not unreasonable I believe part of his challenging recovery is lack of follow-up allowed time to truly recover as he returned to work immediately after all of his surgeries and has a very physical job For now there is no role for repeat surgical intervention and only supportive care He has not had a repeat episode of V. tach so I have limited suspicion that he has any underlying cardiac issues From a standpoint I plan for close outpatient follow-up and he is stable for discharge home whenever deemed appropriate by the hospitalist team Admission and Anticipated Discharge Date Admission Date: June 22, 2022 Subjective Patient well-known to myself Reports that he feels relatively well today Expected levels of tenderness in the right groin and scrotum He reports that he has had some intermittent voiding dysfunction with urgency and then difficulty emptying at times No hematuria No current dysuria or pain with urination Reports that he had sweating overnight but has not demonstrated a true fever and his white blood cell count has returned to normal His hemoglobin is stable His creatinine has recovered entirely to the level he was illustrating prior to his presentation for an obstructing kidney stone He is currently on empiric antibiotics and his cultures thus far have been negative although he had a positive Klebsiella urine culture just over a week ago Physical Exam Physical Exam: Abdomen soft Right hemiscrotum is swollen but within expected range for his recent surgery Incision appears appropriate He has some scant drainage from it No erythema, no crepitus, scrotal wall edema as well as some fluid in the scrotal cavity Constitutional: well developed and well nourished Respiratory: no respiratory distress Cardiovascular: Extremities: no pedal edema Gastrointestinal (Abdomen): Inspection/Auscultation: abdomen normal to inspection Results & Data Vital Signs (Past 12 Hours) Vital Signs Temp Pulse Pulse Resp BP Pulse Ox O2 Del Method 06/22/22 07:49 60 06/22/22 07:32 36.5 C 74 20 148/88 H 97 Room Air 06/22/22 03:38 36.8 C 64 18 120/80 97 Room Air 06/21/22 23:16 37.1 C 63 18 153/88 H 97 Room Air 06/21/22 23:24 74 PG Care Time/CCT Total # of Minutes Spent Total Time Spent with Patient: Total time spent is greater than 50% in coordination of care (as documented) at patient's floor/unit and/or counseling patient: Coding Level of Care Code 88777 SUB INP/OBS CARE 2/35MIN Diagnoses Clear cell renal cell carcinoma C64.9 Hematocele N50.1
[2022-06-22] MEDS ORDERED: OPTIRAY 320 500ml IV ONE (11:02)
--- NOTE | 2022-06-22 11:54 | CT Scan Report ---
CT SCAN OF THE PELVIS WITH IV CONTRAST CLINICAL HISTORY: Scrotal infection. Clinical concern for abscess. COMPARISON STUDY: Pelvic CT dated 05/31/2022. Scrotal ultrasound dated 06/16/2022. TECHNIQUE: Following the IV administration of 94 cc of Optiray 320, CT scan of the pelvis is performe d from the pelvic inlet to the proximal femora. Images are reviewed in the axial, sagittal, and coron al planes. IV contrast was administered without complication. A dose lowering technique was utilized adhering to the principles of ALARA. CT DOSE: 1311.94 mGy.cm FINDINGS: The bladder is distended but otherwise normal in appearance. The prostate and seminal vesicles are no rmal as visualized. There is no pelvic sidewall lymphadenopathy. Atherosclerotic calcification is not ed in the abdominal aorta and iliac arteries. A normal appendix is partially visualized. Imaged loops of small bowel and colon show no evidence of obstruction. No intraperitoneal free air or free-fluid is seen in the pelvis. There is marked scrotal wall thickening and edema, right greater than left. The right testis is not i dentified. The left testis is normal as visualized, but not well assessed by CT. There is a small lef t-sided hydrocele. There is a complex and peripherally enhancing/thick-walled gas and fluid containin g collection involving the right hemiscrotum. This measures approximately 12.5 x 13.5 x 5 cm as seen on axial image #181 of 210. This extends superiorly along the right inguinal canal on axial image #12 3. There is no intraperitoneal extension. Prominent right inguinal lymph nodes are likely reactive. T here is no perineal soft tissue gas. The bony pelvis is intact. No lytic or blastic lesion is seen. The regional musculature is normal and symmetric. IMPRESSION: 1. A normal right testis is not identified. The left testis is grossly unremarkable, but not well rodri luated by CT. 2. There is evidence of scrotal cellulitis with a large complex gas and fluid containing collection f illing the right hemiscrotum as above. The appearance is typical for a large abscess. Correlate clini charles. 3. The right scrotal collection extends superiorly into the inguinal canal. There is no intraperitone al extension. 4. Small left-sided hydrocele. 5. The bladder, prostate, and seminal vesicles are normal as imaged. ACT 112: Negative or not required by law. Dictated: 06/22/2022 11:13 AM Transcribed: 06/22/2022 11:52 AM Rick [id number] [email or web address] Electronically signed by: Geo Dale M.D. 06/22/2022 11:53 AM
[2022-06-22] MEDS: POLYETHYLENE (MIRALAX) 17 GM PACK PO PRN (14:29)
[2022-06-22] MEDS: traMADol HCL 50 MG TABLET PO PRN ×3 (14:29→23:27)
--- NOTE | 2022-06-22 14:39 | Hospitalist Progress Note ---
Date of Service June 22, 2022 Assessment & Plan (1) Scrotal infection: Plan: Patient has a long operative history this year related to scrotal issues and ureteral stents with a concurrent urinary tract infection who he presents with persistent postoperative change Acute on chronic scrotal infection significant risk Ceftriaxone daptomycin continue. The staff will be tested for sensitivities against linezolid as this may be continued as an outpatient and oral format once the patient recovers Appreciate urology consultation no immediate plans for surgical intervention local wound care Pain control with parenteral opiates and oral opiates Given chills and flushing with some right lower quadrant and perineal pain CT pelvis was undertaken with concern of complex fluid collection which could be postoperative in the right hemiscrotum With brief run of ventricular arrhythmia? No further arrhythmias seen on telemetry monitoring patient be downgraded from telemetry Admission and Anticipated Discharge Date Admission Date: June 22, 2022 Subjective This patient does not feel like he is doing much better and he still has some drainage from his scrotum however objectively his scrotum is much less erythematous and swollen it feels indurated and very painful. He was having some right lower quadrant abdominal pain and some perineal discomfort and so we proceeded towards CT scan abdomen pelvis as he was also having what he describes was drenching sweats associated with these waves of discomfort Physical Exam Physical Exam: PT is in some pain swollen scrotum, less erythematous and indurated although still very painful cardiac is regular no evidence of arrhythmia on monitor lungs are clear Results & Data Results & Data Vital Signs (Past 12 Hours) Vital Signs Temp Pulse Pulse Resp BP Pulse Ox O2 Del Method 06/22/22 11:43 98.9 F 06/22/22 11:28 98.6 F 71 18 137/71 96 Room Air 06/22/22 07:49 60 06/22/22 07:32 97.7 F 74 20 148/88 H 97 Room Air 06/22/22 03:38 98.2 F 64 18 120/80 97 Room Air Laboratory Results Reviewed CRP decreased from previous Reviewed PRP Reviewed CBC PG Care Time/CCT Total # of Minutes Spent Total Time Spent with Patient: Total time spent is greater than 50% in coordination of care (as documented) at patient's floor/unit and/or counseling patient: Coding Level of Care Code 23762 SUB INP/OBS CARE 2/35MIN Diagnoses Scrotal infection N49.2
[2022-06-22] MEDS: oxyBUTYnin chloride 5 MG TAB PO PRN (15:35)
[2022-06-22] MEDS: ENOXAPARIN INJ 40 MG/0.4 ML SYR SQ SCH (17:56)
[2022-06-23] MEDS: SODIUM CHLORIDE 0.9% 1000ML 1,000 ML IV SCH ×3 (05:03→17:10)
[2022-06-23] MEDS: traMADol HCL 50 MG TABLET PO PRN (06:28)
[2022-06-23] MEDS ORDERED: TAMSULOSIN HCL 0.4 MG CAP PO ONE (06:45)
[2022-06-23 07:53] LABS: Hematocrit (blood only) 36.5 % (42.0-52.0); Hemoglobin 12.4 g/dl (14.0-18.0); Mean Corpuscular Hemoglobin 29.7 pg (25.0-34.0); Mean Corpuscular Volume 87.5 fL (80.0-100.0); Mean Platelet Volume 8.6 fL (9.4-12.4); Platelet Count 451 K/uL (130-400); RDW Coefficient of Variation 12.6 % (11.5-14.5); RDW Standard Deviation 40.6 fL (36.4-46.3); Red Blood Count 4.17 M/uL (4.70-6.10); White Blood Count 7.94 K/ul (4.8-10.8)
[2022-06-23 08:12] LABS: BUN Creatinine Ratio 15.7 (10-20); Calcium 8.1 mg/dl (8.6-10.3); Creatinine Clr Calc Pharmacy 101.8 ml/min; Est GFR (African American) 105.5 ml/min; Magnesium 1.9 mg/dl (1.7-2.4); Potassium 4.2 mmol/L (3.5-5.1)
--- NOTE | 2022-06-23 08:47 | Urology Progress Note ---
Date of Service June 23, 2022 Assessment & Plan (1) Hematocele: Plan: Progressing appropriately Tamsulosin added to improve voiding dysfunction Continue observation/conservative management for the scrotum I think antibiotics are reasonable as a precautionextending him for 10 days with Bactrim would not be unreasonable after discharge Perhaps the most beneficial element of his hospitalization has been forced rest I have discussed that I am happy otherwise with the progression of his incision and his scrotal appearance I think this will continue to improve over the next several weeks Admission and Anticipated Discharge Date Admission Date: June 22, 2022 Subjective No major changes overnight Did have a CT yesterday which shows a collection in the right inguinal canal and upper scrotum with some air trapped within The radiologist imply this may be an abscess, however given his recent surgical intervention I strongly suspect that this is a hematoma with some air trapped within He is not exhibiting clinical signs of abscess He is hemodynamically stable, afebrile with out a leukocytosis and has no skin or overlying changes consistent with infection He is on empiric antibiotics and I do not think it is unreasonable to continue that even after discharge He reports that he had drainage from his incision overnight but this is relatively clear He does have intermittent sweats without associated temperatures Otherwise feels okay Still with some intermittent voiding symptomsstraining, sensation of incomplete emptying Physical Exam Physical Exam: Incision appropriate Serosanguineous fluid draining with pressure around the incision No erythema, no crepitus No signs of infection around the scrotum and overall his scrotal edema seems to be improving I can palpate the hematoma in the inguinal area and he is tender over this Results & Data Vital Signs (Past 12 Hours) Vital Signs Temp Pulse Pulse Resp BP Pulse Ox O2 Del Method 06/23/22 08:34 52 L 06/23/22 08:03 36.6 C 64 18 151/81 H 97 Room Air 06/23/22 04:00 36.6 C 63 18 154/73 H 96 Room Air 06/22/22 22:21 37.2 C 69 16 136/77 97 Room Air 06/22/22 23:25 61 06/22/22 23:13 37.5 C 67 20 142/84 H 97 Room Air PG Care Time/CCT Total # of Minutes Spent Total Time Spent with Patient: Total time spent is greater than 50% in coordination of care (as documented) at patient's floor/unit and/or counseling patient: Coding Level of Care Code 37718 SUB INP/OBS CARE MIN Diagnoses Hematocele N50.1
[2022-06-23] MEDS: oxyBUTYnin chloride 5 MG TAB PO PRN (09:11)
[2022-06-23] MEDS: ACETAMINOPHEN 500 MG TAB PO SCH ×3 (10:04→20:49)
[2022-06-23] MEDS: cefTRIAXone SODIUM 2,000 MG in DEXTROSE 5% 50 ML IV SCH (10:55)
[2022-06-23] MEDS ORDERED: BISMUTH SUBSALICYLATE SUSP PO PRN (14:22)
--- NOTE | 2022-06-23 14:35 | Hospitalist Progress Note ---
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 The staff will be tested for sensitivities against linezolid as this may be continued as an outpatient and oral format once the patient recovers Appreciate urology consultation no immediate plans for surgical intervention local wound care Pain control with parenteral opiates and oral opiates Pelvic CT shows a complex fluid collection which could be postoperative in the right hemiscrotum No additional arrhythmia/ventricular arrhythmia? Patient downgraded from telemetry status Admission and Anticipated Discharge Date Admission Date: June 22, 2022 Subjective Patient with persistent drainage from his scrotal sac swelling his underwear this is serosanguineous He does have intermittent sweats without associated temperatures Minor digestion requesting Pepto-Bismol starting on some at bedtime Pepcid Physical Exam Physical Exam: PT is in some pain swollen scrotum, less erythematous and indurated draining at the inferior margin of the incision this is a pink-tinged to serosanguineous liquid Scrotal tenderness is overall improved cardiac is regular no evidence of arrhythmia on monitor lungs are clear Results & Data Results & Data Vital Signs (Past 12 Hours) Vital Signs Temp Pulse Pulse Resp BP Pulse Ox O2 Del Method 06/23/22 08:34 52 L 06/23/22 08:03 97.9 F 64 18 151/81 H 97 Room Air 06/23/22 04:00 97.9 F 63 18 154/73 H 96 Room Air Laboratory Results Reviewed CBC Reviewed chemistry PG Care Time/CCT Total # of Minutes Spent Total Time Spent with Patient: Total time spent is greater than 50% in coordination of care (as documented) at patient's floor/unit and/or counseling patient: Coding Level of Care Code 77851 SUB INP/OBS CARE 2/35MIN Diagnoses Scrotal infection N49.2
[2022-06-23] MEDS: ENOXAPARIN INJ 40 MG/0.4 ML SYR SQ SCH (17:03)
[2022-06-23] MEDS: TAMSULOSIN HCL 0.4 MG CAP PO SCH (20:49)
[2022-06-23] MEDS: FAMOTIDINE 20 MG TAB PO SCH (20:49)
[2022-06-24] MEDS: SODIUM CHLORIDE 0.9% 1000ML 1,000 ML IV SCH ×3 (00:55→17:07)
[2022-06-24 07:50] LABS: Hematocrit (blood only) 38.3 % (42.0-52.0); Hemoglobin 12.7 g/dl (14.0-18.0); Mean Corpuscular Hemoglobin 29.4 pg (25.0-34.0); Mean Corpuscular Hgb Conc 33.2 g/dL (32.0-36.0); Mean Corpuscular Volume 88.7 fL (80.0-100.0); Mean Platelet Volume 8.8 fL (9.4-12.4); Platelet Count 498 K/uL (130-400); RDW Coefficient of Variation 12.5 % (11.5-14.5); Red Blood Count 4.32 M/uL (4.70-6.10)
[2022-06-24 08:15] LABS: BUN Creatinine Ratio 16.3 (10-20); Calcium 8.4 mg/dl (8.6-10.3); Creatinine Clr Calc Pharmacy 92.9 ml/min; Est GFR (African American) 94.7 ml/min; Est GFR (Non-African American) 81.7 ml/min; Magnesium 1.9 mg/dl (1.7-2.4); Potassium 4.2 mmol/L (3.5-5.1)
[2022-06-24] MEDS: ACETAMINOPHEN 500 MG TAB PO SCH ×3 (08:39→19:52)
[2022-06-24] MEDS: FAMOTIDINE 20 MG TAB PO SCH ×2 (08:39→19:53)
[2022-06-24] MEDS: cefTRIAXone SODIUM 2,000 MG in DEXTROSE 5% 50 ML IV SCH (10:57)
--- NOTE | 2022-06-24 11:31 | Urology Progress Note ---
Date of Service June 24, 2022 Assessment & Plan (1) Hematocele: (2) Scrotal pain: Plan 61-year-old male with a history of right radical nephrectomy for renal cell carcinoma; recent presentation secondary to an obstructing left ureteral calculus; recent surgery for a right hematocele with ultimate return to the operating room to remove the remnant testis which did not recover after surgery. Patient is afebrile and hemodynamically stable. Labs show no leukocytosis and normal renal function. UC on 06/21 grew out Coag negative staph. Blood cultures prelim no growth. He has been on IV daptomycin and ceftriaxone. Tamsulosin added to improve voiding dysfunction. Continue observation and conservative management. Continue antibiotics-extending him for 10 days of antibiotics would not be unreasonable on discharge. Provided reassurance that he will continue to improve with time. Urology will follow. Admission and Anticipated Discharge Date Admission Date: June 22, 2022 Subjective Patient examined at bedside this AM. Awake, sitting up in bedside chair on arrival. No acute distress. Persistent serosanguineous drainage from incision. He feels the scrotal edema is improving. Reports sweats overnight without associated temperatures. Voiding okay, and denies hematuria/dysuria. Review of Systems Constitutional: as per Subjective / HPI Genitourinary: + as per Subjective / HPI Physical Exam Constitutional: no acute distress Respiratory: no respiratory distress and no labored breathing Musculoskeletal: Head/Neck/Chest: normocephalic Skin: No visible rashes or lesions to exposed skin areas Neurologic: moves all extremities and awake Psychiatric: A+Ox3, euthymic affect Genitourinary: Incision appropriate. Serosanguineous drainage noted from incision site. No erythema. Tender with palpation, most notable on right posterior scrotum. Results & Data Vital Signs (Past 12 Hours) Vital Signs Temp Pulse Resp BP Pulse Ox O2 Del Method 06/24/22 06:28 37.1 C 68 18 156/90 H 94 Room Air 06/24/22 03:08 36.9 C 67 18 139/74 93 Room Air PG Care Time/CCT Total # of Minutes Spent Total Time Spent with Patient: Total time spent is greater than 50% in coordination of care (as documented) at patient's floor/unit and/or counseling patient: Coding Level of Care Code 78534 SUB INP/OBS CARE 2/35MIN Diagnoses Hematocele N50.1 Scrotal pain N50.82
--- NOTE | 2022-06-24 17:24 | Hospitalist Progress Note ---
Date of Service June 24, 2022 Assessment & Plan (1) Scrotal infection: Plan: Patient has a long operative history this year related to scrotal issues and ureteral stents with a concurrent urinary tract infection who he presents with persistent postoperative change Acute on chronic scrotal infection significant risk Ceftriaxone daptomycin continue. The staff will be tested for sensitivities against linezolid as this may be continued as an outpatient and oral format once the patient recovers Appreciate urology consultation no immediate plans for surgical intervention PT with persistent pain and continued chills, will continue antibiotics Pain control with parenteral opiates and oral opiates Pelvic CT shows a complex fluid collection which could be postoperative in the right hemiscrotum No additional arrhythmia/ventricular arrhythmia? Patient downgraded from telemetry status Admission and Anticipated Discharge Date Admission Date: June 22, 2022 Subjective Patient still feeling intermittent chills he is fatigued does have difficulty sleeping although denies my request offer sleeping medication Still having drainage from his scrotum but the scrotum is much less swollen and induration is receding Physical Exam Physical Exam: PT is in some pain swollen scrotum, less erythematous and indurated draining at the inferior margin of the incision this is a pink-tinged to serosanguineous liquid Scrotal tenderness is overall improved, but still present. cardiac is regular no evidence of arrhythmia on monitor lungs are clear Results & Data Results & Data Vital Signs (Past 12 Hours) Vital Signs Temp Pulse Resp BP Pulse Ox O2 Del Method 06/24/22 15:40 99.0 F 73 20 141/68 H 96 Room Air 06/24/22 06:28 98.8 F 68 18 156/90 H 94 Room Air PG Care Time/CCT Total # of Minutes Spent Total Time Spent with Patient: Total time spent is greater than 50% in coordination of care (as documented) at patient's floor/unit and/or counseling patient: Coding Level of Care Code 34497 SUB INP/OBS CARE 2/35MIN Diagnoses Scrotal infection N49.2
[2022-06-24] MEDS: ENOXAPARIN INJ 40 MG/0.4 ML SYR SQ SCH (17:54)
[2022-06-24] MEDS: POLYETHYLENE (MIRALAX) 17 GM PACK PO PRN (18:01)
[2022-06-24] MEDS: TAMSULOSIN HCL 0.4 MG CAP PO SCH (19:53)
[2022-06-25] MEDS: SODIUM CHLORIDE 0.9% 1000ML 1,000 ML IV SCH ×2 (01:02→09:06)
[2022-06-25] MEDS: ACETAMINOPHEN 500 MG TAB PO SCH ×3 (07:47→20:16)
[2022-06-25] MEDS: FAMOTIDINE 20 MG TAB PO SCH ×2 (07:47→20:15)
[2022-06-25 07:53] LABS: Hematocrit (blood only) 39.1 % (42.0-52.0); Hemoglobin 13.1 g/dl (14.0-18.0); Mean Corpuscular Hemoglobin 29.3 pg (25.0-34.0); Mean Corpuscular Hgb Conc 33.5 g/dL (32.0-36.0); Mean Corpuscular Volume 87.5 fL (80.0-100.0); Mean Platelet Volume 8.5 fL (9.4-12.4); Platelet Count 466 K/uL (130-400); RDW Coefficient of Variation 12.5 % (11.5-14.5); RDW Standard Deviation 39.8 fL (36.4-46.3); Red Blood Count 4.47 M/uL (4.70-6.10); White Blood Count 9.26 K/ul (4.8-10.8)
[2022-06-25 08:16] LABS: BUN Creatinine Ratio 13.6 (10-20); Calcium 8.8 mg/dl (8.6-10.3); Creatinine Clr Calc Pharmacy 103.4 ml/min; Est GFR (Non-African American) 91.4 ml/min; Potassium 4.1 mmol/L (3.5-5.1)
[2022-06-25] MEDS: cefTRIAXone SODIUM 2,000 MG in DEXTROSE 5% 50 ML IV SCH (12:09)
--- NOTE | 2022-06-25 15:58 | Hospitalist Progress Note ---
Date of Service June 25, 2022 Assessment & Plan (1) Scrotal infection: Plan: Patient has a long operative history this year related to scrotal issues and ureteral stents with a concurrent urinary tract infection who he presents with persistent postoperative change Acute on chronic scrotal infection significant risk Ceftriaxone daptomycin continue. The staff will be tested for sensitivities against linezolid as this may be continued as an outpatient his Klebsiella should be well treated by the time he is discharged, if needed can continue levaquin as Cefdinir is on backorder Appreciate urology consultation no immediate plans for surgical intervention PT with persistent pain and continued chills, will continue antibiotics Pain control with parenteral opiates and oral opiates Pelvic CT shows a complex fluid collection which could be postoperative in the right hemiscrotum No additional arrhythmia/ventricular arrhythmia? Patient downgraded from telemetry status Admission and Anticipated Discharge Date Admission Date: June 22, 2022 Subjective Patient still feeling intermittent chills he is fatigued patient had a better ni ght sleep. Having drainage but now becoming more clear scrotum is much less swollen and induration is receding Physical Exam Physical Exam: PT is in some pain worse when sitting down. swollen scrotum, less erythematous and indurated Continues with intermittent draining at the inferior margin of the incision Scrotal tenderness is overall improved, but still present. cardiac is regular no evidence of arrhythmia on monitor lungs are clear Results & Data Results & Data Vital Signs (Past 12 Hours) Vital Signs Temp Pulse Resp BP Pulse Ox O2 Del Method 06/25/22 15:29 98.1 F 66 18 139/77 94 Room Air 06/25/22 09:53 Room Air 06/25/22 07:35 97.3 F L 65 18 150/83 H 98 Room Air Laboratory Results Reviewed CBC Reviewed PRP PG Care Time/CCT Total # of Minutes Spent Total Time Spent with Patient: Total time spent is greater than 50% in coordination of care (as documented) at patient's floor/unit and/or counseling patient: Coding Level of Care Code 56527 SUB INP/OBS CARE 2/35MIN Diagnoses Scrotal infection N49.2
--- NOTE | 2022-06-25 16:28 | Urology Progress Note ---
Date of Service June 25, 2022 Assessment & Plan (1) Hematocele: Plan: Status post hematocele drainage and right orchiectomy Doing better Continue supportive care for the scrotum He does have a hematoma of the right groin and this will resolve spontaneously with time but overall he does seem to be improving appropriately His urine culture showed some gram-positive bacteriaI am uncertain that this is an accurate culture may be a contaminant He does have hypospadias which may increase the likelihood of a false positive culture It is sensitive to nitrofurantoin and that may be the best option is to empirically cover him but not overdo it with treatment Plan to send him home with tamsulosinI have sent this to the pharmacy already Admission and Anticipated Discharge Date Admission Date: June 22, 2022 Subjective Continues to do well Improvement in the edema of his right hemiscrotum Still with some serous drainage but otherwise seems to be tolerating well Decreased pain No fevers Physical Exam Physical Exam: Incision appropriate Right hemiscrotum with decreasing edemamostly scrotal wall edema Still with palpable hematoma in the right groinno bigger than it was yesterday Results & Data Vital Signs (Past 12 Hours) Vital Signs Temp Pulse Resp BP Pulse Ox O2 Del Method 06/25/22 15:29 36.7 C 66 18 139/77 94 Room Air 06/25/22 09:53 Room Air 06/25/22 07:35 36.3 C L 65 18 150/83 H 98 Room Air PG Care Time/CCT Total # of Minutes Spent Total Time Spent with Patient: Total time spent is greater than 50% in coordination of care (as documented) at patient's floor/unit and/or counseling patient: Coding Level of Care Code 87427 SUB INP/OBS CARE 2/35MIN Diagnoses Hematocele N50.1
[2022-06-25] MEDS: ENOXAPARIN INJ 40 MG/0.4 ML SYR SQ SCH (16:37)
[2022-06-25] MEDS: TAMSULOSIN HCL 0.4 MG CAP PO SCH (20:16)
[2022-06-26] MEDS: FAMOTIDINE 20 MG TAB PO SCH (07:59)
[2022-06-26] MEDS: ACETAMINOPHEN 500 MG TAB PO SCH (07:59)
--- NOTE | 2022-06-26 08:26 | Urology Progress Note ---
Date of Service June 26, 2022 Assessment & Plan (1) Hematocele: Plan: Scrotum improving appropriately Outpatient follow-up already scheduled Uncertain of his urine culture is accurate given his hypospadias, however it seems that we are attempting to arrange antibiotics for him at home Stable for discharge home from a standpoint Admission and Anticipated Discharge Date Admission Date: June 22, 2022 Subjective No major changes overnight aside from switching rooms That is his only complaint as well No change in his scrotal issues, etc.seems to be making good progress Anxious to go home Results & Data Vital Signs (Past 12 Hours) Vital Signs Temp Pulse Resp BP BP Pulse Ox O2 Del Method 06/26/22 07:48 36.5 C 64 18 182/92 H 97 Room Air 06/26/22 02:47 63 147/75 H 99 Room Air 06/25/22 23:23 36.5 C 66 18 192/98 H 96 Room Air 06/25/22 22:32 36.6 C 68 20 161/81 H 95 Room Air 06/25/22 22:08 Room Air PG Care Time/CCT Total # of Minutes Spent Total Time Spent with Patient: Total time spent is greater than 50% in coordination of care (as documented) at patient's floor/unit and/or counseling patient: Coding Level of Care Code 99646 SUB INP/OBS CARE 2/35MIN Diagnoses Hematocele N50.1
[2022-06-26] MEDS: cefTRIAXone SODIUM 2,000 MG in DEXTROSE 5% 50 ML IV SCH (11:15)
--- NOTE | 2022-06-26 17:16 | Discharge Summary ---
Date of Service June 26, 2022 Admission HPI Per Admitting Provider 61-year-old male who has a history of a right radical nephrectomy for renal cell carcinoma 2015, presented in February to our urology group with a large right hydrocele and underwent a right hydrocelectomy on March 26, [address] Rory Olson postoperatively he had issues with slow swelling and postoperative seroma which was slow to improve and patient had 300 cc of fluid removed in the office on May 06 and again 600 cc drained on May 22 Patient was admitted to the hospital on May 31 with a urinary tract infection concern for sepsis and a left ureteral stone taken to the operating room for cystoscopy retrograde pyelogram urine aspiration and left ureteral stent placement by Dr. Pompa, discharged on May on cefpodoxime 200 mg twice daily, seen in the office on the planned for a right scrotal exploration and possible orchiectomy and laser lithotripsy. This was accomplished on 11 June 2022. Represented to the emergency department on June 16 testicular ultrasound was obtained which was reviewed with Dr. Bob patient was released in the emergency room on antibiotics of Bactrim twice daily urine culture from that day grew Klebsiella which was covered by the Bactrim but also grew coag negative staph. In the emergency department his scrotum remains fairly swollen and tender emergency staff contact urology overnight which recommended admission. Incidentally while the patient was in the emergency department he had a 15 beat run of an arrhythmia while he was at rest without symptoms. Emergency department given daptomycin to cover his staph urine culture Principal Diagnosis Postoperative scrotal abscess Ventricular arrhythmia self-limited resolved Discharge Exam Patient's scrotum is much improved there is no expressible drainage at time of discharge Discharge Data Allergies Allergy/AdvReac Type Severity Reaction Status Date / Time Penicillins Allergy Mild CHILD Verified 06/11/22 12:21 HAD A RASH morphine AdvReac Mild N/V Verified 06/11/22 12:21 Consultations 06/21/22 06:58 Consult Urology Stat 06/21/22 07:04 ED Decision to Admit Stat 06/21/22 10:28 Consult Urology Routine Ordered Studies 06/22/22 09:37 CT pelvis w/IV con only Routine Hospital Course (1) Scrotal infection: Patient has a long operative history this year related to scrotal issues and ureteral stents with a concurrent urinary tract infection who he presents with persistent postoperative change Acute on chronic scrotal infection significant risk Ceftriaxone daptomycin continue. The staff will be tested for sensitivities against linezolid as this may be continued as an outpatient his Klebsiella yolanda uld be well treated by the time he is discharged, Appreciate urology consultation recommends discharge on Flomax this was also sent to the patient's pharmacy Pelvic CT shows a complex fluid collection which could be postoperative in the right hemiscrotum dramatic clinical improvement at the bedside will have outpatient follow-up in short duration with urology No additional arrhythmia/ventricular arrhythmia? Patient downgraded from telemetry status Total Time Total Time Spent Total Time Spent (In Minutes): It required greater than 30 minutes to prepare this patient for discharge including coordination care with urology for post discharge follow-up Discharge Plan Discharge Items Patient Disposition: Home - Self-Care Reason For Visit: SWOLLEN TESTICLE, BLEEDING Discharge Diagnosis: post op scrotal swelling staph uti Activity: Per Instructions section Activity Comment: rest and recuperate until you see urology next week Non-emergency contact: Primary Care Provider Call non-emergency contact if: your symptoms worsen Follow-up/Referrals: Rory Olson MD [Physician] - 07/01/22 4:00 pm PCP,NO [Primary Care Provider] - Diet: Regular Addtl Attending Provider Instructions: please rest and elevated your scrotum as much as possible take your antibiotics twice a day wash your wound once a day with soap and water, try to keep dry and if you have drainage change bandage frequently Addtl Upholstery Instructor Provider Instructions: Please call the urology office at [phone] with any questions, concerns or need to reschedule appointments for any reason. Please take all medications as prescribed. You are scheduled for a follow-up with Dr. Olson on 07/01/2022 at 4 PM. Pending Studies at Discharge: No Stand-Alone Forms: My [employer], Smoking Cessation Medications and DC Order Prescriptions: New linezolid 600 mg tablet 600 mg PO BID 10 Days Qty: 20 0RF tamsulosin 0.4 mg Capsule 0.4 mg PO HS Qty: 30 5RF Continued garlic 1,000 mg Capsule 1,000 mg PO QAM oxybutynin chloride 5 mg tablet 0 mg PO BID PRN (Reason: bladder spasms) Rx Instructions: pt did not start; 5 mg bid prn bladder spasms Discontinued levofloxacin 250 mg tablet 250 mg PO DAILY Rx Instructions: x 5 days; started 06/17/22, 1 dose left Discharge Orders: Discharge Order (Routine); Ordered 06/26/22 Ordered By: Sandeep De Leon Admission Data Admit Date/Time: 06/22/22 07:37 Attending Provider: Sandeep De Leon Admit Provider: Sandeep De Leon Primary Care Provider: PCP,NO Other Providers: Rory Olson ; Sandeep De Leon Other Interventions: Discharge Summary Assessment (RN) Last Done: 06/26/22 14:11 Coding Level of Care Code 03009 INP/OBS DISCH >30 MIN Diagnoses Scrotal infection N49.2
== END 2022-06-26 14:35 | disposition home or self-care (01) | DRG 863 ==
LOC: ED 04:04 → 2W 04:04 → 3N 06-25 23:18